=== PATIENT | male | born 1950 | race Caucasian/White ===

== ENCOUNTER 2016-04-24 15:33 | Inpatient (IN) | payer MEDICARE, MEDICAID ==
[2016-04-24] VITALS (15 sets, daily range): BP systolic 92–147; BP diastolic 57–74
[~2016-04-24] VITALS: Ht 188 cm; Wt 110.7 kg
[~2016-04-24 15:33] MED LIST: ADULT ASPIRIN L81 MG PO; ALLOPURINOL100 MG PO; ALTACE10 MG OR; ALTACE5 M1 PO; AMIODARONE HCL200 MG PO; AMIODARONE200 MG PO; ASPIRIN CHEWABL81 MG PO; ASPIRIN325 MG PO; AVELOX400 MG PO; BENADRYL25 MG OR; BRIMONIDINE0.2 % OP; CARVEDILOL25 MG PO; CARVEDILOL6.25 MG PO; CIPRO XR500 M2 PO; CIPRO XR500 MG PO; CIPRO250 MG PO; CIPRO500 MG OR; CIPROFLOXACN500 MG PO; CLEOCIN150 MG PO; COLCHICINE0.6 MG OR; CRESTOR5 MG PO; DOXYCYC MONO100 M1 OR; DUONEB IN; FAMOTIDINE20 M1 PO; FINASTERIDE5 MG PO; FLAGYL500 MG OR; FLAGYL500 MG PO; FLEXERIL PO; FLOMAX0.4 M1 PO; FUROSEMIDE20 MG PO; INHALER IN; ISOSORB DIN30 MG PO; ISOSORB MONO30 MG PO; K-DUR/KLOR-CON10 MEQ PO; KIONEX OR; LASIX 40 MG40 MG/TAB PO; LISINOPRIL10 MG PO; LOPRESSOR 550 MG/TAB PO; LOPRESSOR25 MG OR; LORTAB 5 OR; METOCLOPRAM5 MG PO; METOPROL TAR25 M1 OR; METOPROL TAR25 MG PO; METOPROLOL100 MG OR; NITROLINGUAL SPRAY D MT; NITROSTAT0.4 MG PO; NOVOLOG FLEXPEN SC; OMEPRAZOLE20 MG OR; ONDANSETRON4 MG PO; PANTOPRAZOLE SO40 M1 PO; PANTOPRAZOLE SO40 MG PO; PARICALCITOL1 MCG PO; PEPCID20 MG OR; PERCOCET 5/325M1 TAB OR; PERCOCET 5/325M1 TAB PO; PLAVIX75 MG PO; PRAVASTATIN SOD20 MG PO; PRAVASTATIN20 MG PO; PRAVASTATIN80 MG PO; PREDNISONE20 MG OR; PREDNISONE20 MG PO; PROVENTIL0.083 % IN; QVAR40 MCG IN; SIMVASTATIN20 MG OR; SYMBICORT1 AE1 IN; TAMSULOSIN0.4 MG PO; ULORIC40 MG PO; ULTRAM50 M1 PO; VYTORIN1 TA1 OR; ZEMPLAR1 MCG PO; ZETIA10 MG PO; ZOCOR80 MG PO; [UNRECOGNIZED DRUG - OTHER] OR
[2016-04-24 16:32] LABS: URINE BLOOD DIPSTICK NEGATIVE (NEGATIVE); URINE CLARITY CLEAR; URINE COLOR YELLOW; URINE GLUCOSE - DIPSTICK NEGATIVE (NEGATIVE); URINE KETONE NEGATIVE (NEGATIVE); URINE LEUK ESTERASE NEGATIVE (Negative); URINE NITRITE - DIPSTICK NEGATIVE (Negative); URINE PROTEIN - DIPSTICK >=300 mg/dL (NEG-TRACE); URINE SPECIFIC GRAVITY 1.025; URINE UROBILINOGEN - DIPSTICK >=8.0 E.U./dL (0.2)
[2016-04-24 16:44] LABS: URINE BILIRUBIN - DIPSTICK TRACE (NEGATIVE)
[2016-04-24 16:48] LABS: HEMATOCRIT 33.6 % (39.0-50.0); HEMOGLOBIN 11.1 g/dl (14.0-18.0); IMMATURE GRANULOCYTES 0.4 % (0.0-1.0); MEAN CELL VOLUME 95.7 fL CALC (80.0-100.0); MEAN CORPUSCULAR HGB 31.6 pG CALC (26.0-32.0); NEUT# 4.64 thou/uL (1.82-7.42); RED BLOOD COUNT 3.51 mill/uL (4.70-6.10); RED CELL DISTRI WIDTH 15.3 % (11.5-15.5)
[2016-04-24 17:03] LABS: ANION GAP 14 (6-22 (CALC)); BUN 24 mg/dL (8-23); BUN/CREATININE RATIO 15 (12-20 (CALC)); CALCIUM 8.5 mg/dL (8.4-10.2); CARBON DIOXIDE 28 mmol/l (22-30); CHLORIDE 104 mmol/l (95-108); CREATININE 1.6 mg/dL (0.7-1.3); GFR 44 ML/MIN (>=60 (CALC)); GFR FOR AFR.AMER. 53 ML/MIN (>=60 (CALC)); GLUCOSE 108 mg/dL (82-115); SODIUM 142 mmol/l (137-146)
[2016-04-24 17:16] LABS: URINE RBC 0-2 RBC/hpf (0-5); URINE SQUAMOUS EPITHELIAL CELL FEW EPI/hpf (0-FEW)
[2016-04-25] VITALS (17 sets, daily range): BP systolic 80–119; BP diastolic 51–74
[2016-04-25 04:35] LABS: HEMATOCRIT 33.8 % (39.0-50.0); HEMOGLOBIN 11.2 g/dl (14.0-18.0); IMMATURE GRANULOCYTES 0.3 % (0.0-1.0); MEAN CELL VOLUME 94.9 fL CALC (80.0-100.0); MEAN CORPUSCULAR HGB 31.5 pG CALC (26.0-32.0); MEAN CORPUSCULAR HGB CONC 33.1 g/L CALC (32.0-36.0); NEUT# 10.14 thou/uL (1.82-7.42); RED BLOOD COUNT 3.56 mill/uL (4.70-6.10); RED CELL DISTRI WIDTH 14.7 % (11.5-15.5)
[2016-04-25 04:48] LABS: ALBUMIN 3.1 g/dL (3.2-5.0); BILIRUBIN, TOTAL 1.9 mg/dL (0.0-1.4); CALCIUM 8.6 mg/dL (8.4-10.2); CREATININE 1.6 mg/dL (0.7-1.3); TOTAL PROTEIN 6.5 g/dL (6.3-8.2)
[2016-04-26] VITALS (34 sets, daily range): BP systolic 103–128; BP diastolic 62–89
[2016-04-26 06:11] LABS: HEMATOCRIT 34.6 % (39.0-50.0); HEMOGLOBIN 11.2 g/dl (14.0-18.0); IMMATURE GRANULOCYTES 0.7 % (0.0-1.0); MEAN CELL VOLUME 95.8 fL CALC (80.0-100.0); MEAN CORPUSCULAR HGB CONC 32.4 g/L CALC (32.0-36.0); NEUT# 12.96 thou/uL (1.82-7.42); RED BLOOD COUNT 3.61 mill/uL (4.70-6.10); RED CELL DISTRI WIDTH 14.6 % (11.5-15.5)
[2016-04-26 06:37] LABS: CALCIUM 8.5 mg/dL (8.4-10.2); CREATININE 1.6 mg/dL (0.7-1.3); POTASSIUM 4.7 mmol/l (3.5-5.1)
[2016-04-26 09:47] LABS: URINE BLOOD DIPSTICK LARGE (NEGATIVE); URINE CLARITY TURBID; URINE COLOR YELLOW; URINE GLUCOSE - DIPSTICK NEGATIVE (NEGATIVE); URINE KETONE NEGATIVE (NEGATIVE); URINE LEUK ESTERASE SMALL (Negative); URINE NITRITE - DIPSTICK NEGATIVE (Negative); URINE PH 5.5 (4.5-8.0); URINE PROTEIN - DIPSTICK 30 mg/dL (NEG-TRACE); URINE SPECIFIC GRAVITY 1.025
[2016-04-26 09:50] LABS: URINE BILIRUBIN - DIPSTICK SMALL (NEGATIVE)
[2016-04-26 10:13] LABS: URINE RBC 25-50 RBC/hpf (0-5); URINE WBC 20-50 WBC/hpf (0-5)
[2016-04-26 10:14] LABS: URINE BACTERIA FEW hpf; URINE SQUAMOUS EPITHELIAL CELL FEW EPI/hpf (0-FEW)
[2016-04-27] VITALS (25 sets, daily range): BP systolic 93–129; BP diastolic 58–77
[2016-04-27 05:15] LABS: CALCIUM 8.4 mg/dL (8.4-10.2); CREATININE 1.5 mg/dL (0.7-1.3); POTASSIUM 3.6 mmol/l (3.5-5.1)
[2016-04-27 05:28] LABS: HEMOGLOBIN 11.2 g/dl (14.0-18.0); IMMATURE GRANULOCYTES 0.3 % (0.0-1.0); MEAN CELL VOLUME 96.7 fL CALC (80.0-100.0); MEAN CORPUSCULAR HGB 30.9 pG CALC (26.0-32.0); NEUT# 9.86 thou/uL (1.82-7.42); RED BLOOD COUNT 3.62 mill/uL (4.70-6.10)
[2016-04-28] VITALS (9 sets, daily range): BP systolic 99–114; BP diastolic 57–69
[2016-04-28 05:48] LABS: HEMATOCRIT 31.7 % (39.0-50.0); HEMOGLOBIN 10.4 g/dl (14.0-18.0); IMMATURE GRANULOCYTES 0.5 % (0.0-1.0); MEAN CELL VOLUME 94.9 fL CALC (80.0-100.0); MEAN CORPUSCULAR HGB 31.1 pG CALC (26.0-32.0); MEAN CORPUSCULAR HGB CONC 32.8 g/L CALC (32.0-36.0); NEUT# 5.44 thou/uL (1.82-7.42); RED BLOOD COUNT 3.34 mill/uL (4.70-6.10); RED CELL DISTRI WIDTH 14.8 % (11.5-15.5)
[2016-04-28 06:12] LABS: ANION GAP 14 (6-22 (CALC)); BUN 29 mg/dL (8-23); BUN/CREATININE RATIO 20 (12-20 (CALC)); CALCIUM 8.3 mg/dL (8.4-10.2); CARBON DIOXIDE 34 mmol/l (22-30); CHLORIDE 99 mmol/l (95-108); CREATININE 1.4 mg/dL (0.7-1.3); GFR 51 ML/MIN (>=60 (CALC)); GFR FOR AFR.AMER. > 60 ML/MIN (>=60 (CALC)); GLUCOSE 88 mg/dL (82-115); POTASSIUM 3.4 mmol/l (3.5-5.1); SODIUM 143 mmol/l (137-146)
[2016-04-29] VITALS (11 sets, daily range): BP systolic 89–120; BP diastolic 50–66
[2016-04-29 05:00] LABS: HEMATOCRIT 30.8 % (39.0-50.0); HEMOGLOBIN 10.1 g/dl (14.0-18.0); IMMATURE GRANULOCYTES 0.4 % (0.0-1.0); MEAN CELL VOLUME 94.8 fL CALC (80.0-100.0); MEAN CORPUSCULAR HGB 31.1 pG CALC (26.0-32.0); MEAN CORPUSCULAR HGB CONC 32.8 g/L CALC (32.0-36.0); NEUT# 3.33 thou/uL (1.82-7.42); RED BLOOD COUNT 3.25 mill/uL (4.70-6.10); RED CELL DISTRI WIDTH 14.9 % (11.5-15.5)
[2016-04-29 05:28] LABS: ANION GAP 10 (6-22 (CALC)); BUN 31 mg/dL (8-23); BUN/CREATININE RATIO 23 (12-20 (CALC)); CALCIUM 7.9 mg/dL (8.4-10.2); CARBON DIOXIDE 35 mmol/l (22-30); CHLORIDE 98 mmol/l (95-108); CREATININE 1.4 mg/dL (0.7-1.3); GFR 51 ML/MIN (>=60 (CALC)); GFR FOR AFR.AMER. > 60 ML/MIN (>=60 (CALC)); GLUCOSE 105 mg/dL (82-115); POTASSIUM 3.1 mmol/l (3.5-5.1); SODIUM 140 mmol/l (137-146)
[2016-04-30] VITALS (12 sets, daily range): BP systolic 93–124; BP diastolic 58–79
[2016-04-30 04:49] LABS: ANION GAP 11 (6-22 (CALC)); BUN 32 mg/dL (8-23); BUN/CREATININE RATIO 25 (12-20 (CALC)); CALCIUM 7.9 mg/dL (8.4-10.2); CARBON DIOXIDE 34 mmol/l (22-30); CHLORIDE 98 mmol/l (95-108); CREATININE 1.3 mg/dL (0.7-1.3); GFR 55 ML/MIN (>=60 (CALC)); GFR FOR AFR.AMER. > 60 ML/MIN (>=60 (CALC)); GLUCOSE 108 mg/dL (82-115); POTASSIUM 3.5 mmol/l (3.5-5.1); SODIUM 140 mmol/l (137-146)
[2016-04-30 05:03] LABS: HEMATOCRIT 32.7 % (39.0-50.0); HEMOGLOBIN 10.9 g/dl (14.0-18.0); IMMATURE GRANULOCYTES 0.7 % (0.0-1.0); MEAN CELL VOLUME 94.2 fL CALC (80.0-100.0); MEAN CORPUSCULAR HGB 31.4 pG CALC (26.0-32.0); MEAN CORPUSCULAR HGB CONC 33.3 g/L CALC (32.0-36.0); NEUT# 3.19 thou/uL (1.82-7.42); RED BLOOD COUNT 3.47 mill/uL (4.70-6.10); RED CELL DISTRI WIDTH 15.1 % (11.5-15.5)
[2016-05-01] VITALS (12 sets, daily range): BP systolic 103–160; BP diastolic 57–84
[2016-05-01 05:32] LABS: HEMATOCRIT 32.4 % (39.0-50.0); HEMOGLOBIN 10.8 g/dl (14.0-18.0); IMMATURE GRANULOCYTES 0.8 % (0.0-1.0); MEAN CELL VOLUME 93.4 fL CALC (80.0-100.0); MEAN CORPUSCULAR HGB 31.1 pG CALC (26.0-32.0); MEAN CORPUSCULAR HGB CONC 33.3 g/L CALC (32.0-36.0); NEUT# 3.58 thou/uL (1.82-7.42); RED BLOOD COUNT 3.47 mill/uL (4.70-6.10); RED CELL DISTRI WIDTH 14.9 % (11.5-15.5)
[2016-05-01 05:47] LABS: ANION GAP 14 (6-22 (CALC)); BUN 29 mg/dL (8-23); BUN/CREATININE RATIO 23 (12-20 (CALC)); CALCIUM 8.2 mg/dL (8.4-10.2); CARBON DIOXIDE 34 mmol/l (22-30); CHLORIDE 96 mmol/l (95-108); CREATININE 1.3 mg/dL (0.7-1.3); GFR 55 ML/MIN (>=60 (CALC)); GFR FOR AFR.AMER. > 60 ML/MIN (>=60 (CALC)); GLUCOSE 101 mg/dL (82-115); POTASSIUM 3.6 mmol/l (3.5-5.1); SODIUM 140 mmol/l (137-146)
[2016-05-02] VITALS (11 sets, daily range): BP systolic 87–121; BP diastolic 54–71
[2016-05-02 06:45] LABS: GFR 55 ML/MIN (>=60 (CALC))
[2016-05-02 06:46] LABS: ANION GAP 13 (6-22 (CALC)); BUN 27 mg/dL (8-23); BUN/CREATININE RATIO 21 (12-20 (CALC)); CALCIUM 8.2 mg/dL (8.4-10.2); CARBON DIOXIDE 35 mmol/l (22-30); CHLORIDE 96 mmol/l (95-108); CREATININE 1.3 mg/dL (0.7-1.3); GFR FOR AFR.AMER. > 60 ML/MIN (>=60 (CALC)); GLUCOSE 98 mg/dL (82-115); POTASSIUM 3.7 mmol/l (3.5-5.1); SODIUM 139 mmol/l (137-146)
[2016-05-02 06:59] LABS: HEMATOCRIT 32.8 % (39.0-50.0); HEMOGLOBIN 11.1 g/dl (14.0-18.0); IMMATURE GRANULOCYTES 0.8 % (0.0-1.0); MEAN CELL VOLUME 92.9 fL CALC (80.0-100.0); MEAN CORPUSCULAR HGB 31.4 pG CALC (26.0-32.0); MEAN CORPUSCULAR HGB CONC 33.8 g/L CALC (32.0-36.0); NEUT# 4.23 thou/uL (1.82-7.42); RED BLOOD COUNT 3.53 mill/uL (4.70-6.10); RED CELL DISTRI WIDTH 15.1 % (11.5-15.5)
[2016-05-03] VITALS (7 sets, daily range): BP systolic 92–118; BP diastolic 53–73
[2016-05-03 05:35] LABS: HEMATOCRIT 33.3 % (39.0-50.0); HEMOGLOBIN 11.1 g/dl (14.0-18.0); IMMATURE GRANULOCYTES 0.8 % (0.0-1.0); MEAN CELL VOLUME 94.3 fL CALC (80.0-100.0); MEAN CORPUSCULAR HGB 31.4 pG CALC (26.0-32.0); MEAN CORPUSCULAR HGB CONC 33.3 g/L CALC (32.0-36.0); NEUT# 4.45 thou/uL (1.82-7.42); RED BLOOD COUNT 3.53 mill/uL (4.70-6.10); RED CELL DISTRI WIDTH 15.5 % (11.5-15.5)
[2016-05-03 05:42] LABS: ANION GAP 12 (6-22 (CALC)); BUN 25 mg/dL (8-23); BUN/CREATININE RATIO 18 (12-20 (CALC)); CALCIUM 8.3 mg/dL (8.4-10.2); CARBON DIOXIDE 36 mmol/l (22-30); CHLORIDE 96 mmol/l (95-108); CREATININE 1.4 mg/dL (0.7-1.3); GFR 51 ML/MIN (>=60 (CALC)); GFR FOR AFR.AMER. > 60 ML/MIN (>=60 (CALC)); GLUCOSE 108 mg/dL (82-115); SODIUM 140 mmol/l (137-146)
[2016-05-03] MEDS ORDERED: CORDARONE/200 MG/TAB PO (12:45)
[2016-05-03] MEDS ORDERED: DICYCLOMINE HCL10 MG PO (12:45)
[2016-05-03] MEDS ORDERED: BUMETANIDE2 MG IN (12:45)
== END 2016-05-03 15:56 | DRG 291 ==
LOC: ENPENDDIS → ICU 15:33
PROVIDERS: Internal Medicine; ADMIT Internal Medicine; ATTEND Internal Medicine
PROC: 0T9B70Z Drainage of Bladder with Drainage Device, Via Natural or Artificial Opening (ICD-10-PCS; principal; 2016-04-24)
PROC: 0D9670Z Drainage of Stomach with Drainage Device, Via Natural or Artificial Opening (ICD-10-PCS; 2016-04-26)
DX: I50.23 Acute on chronic systolic (congestive) heart failure (principal); J96.22 Acute and chronic respiratory failure with hypercapnia; J96.21 Acute and chronic respiratory failure with hypoxia; E11.22 Type 2 diabetes mellitus with diabetic chronic kidney disease; I25.708 Atherosclerosis of coronary artery bypass graft(s), unspecified, with other forms of angina pectoris; Z99.81 Dependence on supplemental oxygen; B37.49 Other urogenital candidiasis; N39.0 Urinary tract infection, site not specified; T83.89XA Other specified complication of genitourinary prosthetic devices, implants and grafts, initial encounter; J44.9 Chronic obstructive pulmonary disease, unspecified; F17.210 Nicotine dependence, cigarettes, uncomplicated; N18.3 Chronic kidney disease, stage 3 (moderate); N48.89 Other specified disorders of penis; N40.0 Benign prostatic hyperplasia without lower urinary tract symptoms; I25.2 Old myocardial infarction; I25.5 Ischemic cardiomyopathy; I73.9 Peripheral vascular disease, unspecified; G47.33 Obstructive sleep apnea (adult) (pediatric); I25.118 Atherosclerotic heart disease of native coronary artery with other forms of angina pectoris; R11.2 Nausea with vomiting, unspecified; R10.9 Unspecified abdominal pain; B96.20 Unspecified Escherichia coli [E. coli] as the cause of diseases classified elsewhere; Y84.6 Urinary catheterization as the cause of abnormal reaction of the patient, or of later complication, without mention of misadventure at the time of the procedure; Z95.1 Presence of aortocoronary bypass graft; Z95.810 Presence of automatic (implantable) cardiac defibrillator; Z95.5 Presence of coronary angioplasty implant and graft
CPT/HCPCS: J1250; S0164

== ENCOUNTER 2016-07-09 10:43 | Emergency (ER) | payer MEDICARE, MEDICAID ==
[~2016-07-09] VITALS: Ht 190.5 cm; Wt 111.4 kg
[~2016-07-09 10:43] MED LIST changes: +BUMETANIDE2 MG IN; +CORDARONE/200 MG/TAB PO; +DICYCLOMINE HCL10 MG PO
[2016-07-09 11:17] LABS: HEMATOCRIT 34.4 % (39.0-50.0); HEMOGLOBIN 11.3 g/dl (14.0-18.0); IMMATURE GRANULOCYTES 0.3 % (0.0-1.0); MEAN CELL VOLUME 98.9 fL CALC (80.0-100.0); MEAN CORPUSCULAR HGB 32.5 pG CALC (26.0-32.0); MEAN CORPUSCULAR HGB CONC 32.8 g/L CALC (32.0-36.0); NEUT# 6.78 thou/uL (1.82-7.42); RED BLOOD COUNT 3.48 mill/uL (4.70-6.10); RED CELL DISTRI WIDTH 19.4 % (11.5-15.5)
[2016-07-09 11:25] LABS: ALBUMIN 3.2 g/dL (3.2-5.0); CALCIUM 8.3 mg/dL (8.4-10.2); CREATININE 1.5 mg/dL (0.7-1.3); POTASSIUM 3.3 mmol/l (3.5-5.1); TOTAL PROTEIN 6.7 g/dL (6.3-8.2)
[2016-07-09] MEDS ORDERED: SERTRALINE50 MG PO (11:35)
[2016-07-09 15:49] LABS: URINE BILIRUBIN - DIPSTICK NEGATIVE (NEGATIVE); URINE BLOOD DIPSTICK TRACE-INTACT (NEGATIVE); URINE CLARITY CLEAR; URINE COLOR YELLOW; URINE GLUCOSE - DIPSTICK NEGATIVE (NEGATIVE); URINE KETONE NEGATIVE (NEGATIVE); URINE LEUK ESTERASE NEGATIVE (NEGATIVE); URINE NITRITE - DIPSTICK NEGATIVE (Negative); URINE PROTEIN - DIPSTICK NEGATIVE (NEG-TRACE)
[2016-07-09] MEDS ORDERED: LORTAB 10-325 M1 TAB PO (16:00)
[2016-07-09 16:09] VITALS: BP 115/75
== END 2016-07-09 17:12 | disposition home or self-care (01) ==
LOC: ED 10:43
PROVIDERS: Emergency Medicine
PROC: 0T9B70Z Drainage of Bladder with Drainage Device, Via Natural or Artificial Opening (ICD-10-PCS; principal; 2016-07-09)
DX: N50.82 Scrotal pain (principal); N43.3 Hydrocele, unspecified; I25.10 Atherosclerotic heart disease of native coronary artery without angina pectoris; I10 Essential (primary) hypertension; I25.2 Old myocardial infarction; E11.9 Type 2 diabetes mellitus without complications; F17.210 Nicotine dependence, cigarettes, uncomplicated; Z95.5 Presence of coronary angioplasty implant and graft; Z95.1 Presence of aortocoronary bypass graft; Z95.0 Presence of cardiac pacemaker

== ENCOUNTER 2016-07-21 13:07 | Inpatient (IN) | payer MEDICARE, MEDICAID ==
[~2016-07-21] VITALS: Ht 188 cm; Wt 120.0 kg
[~2016-07-21 13:07] MED LIST changes: +LORTAB 10-325 M1 TAB PO; +SERTRALINE50 MG PO
[2016-07-21 13:26] LABS: HEMATOCRIT 32.8 % (39.0-50.0); HEMOGLOBIN 10.7 g/dl (14.0-18.0); IMMATURE GRANULOCYTES 0.3 % (0.0-1.0); MEAN CELL VOLUME 100.3 fL CALC (80.0-100.0); MEAN CORPUSCULAR HGB 32.7 pG CALC (26.0-32.0); MEAN CORPUSCULAR HGB CONC 32.6 g/L CALC (32.0-36.0); NEUT# 6.71 thou/uL (1.82-7.42); RED BLOOD COUNT 3.27 mill/uL (4.70-6.10); RED CELL DISTRI WIDTH 18.5 % (11.5-15.5)
[2016-07-21 13:53] LABS: MYOGLOBIN 77 ng/mL (0 - 121)
[2016-07-21 13:57] LABS: INTERNATIONAL NORMALIZED RATIO 1.1 RATIO (0.7-1.3); PROTHROMBIN TIME 12.4 SECONDS (9.0-12.5)
[2016-07-21 14:10] LABS: AMYLASE 60 u/l (30-110); LIPASE 67 u/l (23-300)
[2016-07-21 14:12] LABS: ALKALINE PHOSPHATASE 188 u/l (38-126); ANION GAP 14 (6-22 (CALC)); BILIRUBIN, TOTAL 1.1 mg/dL (0.0-1.4); BUN 25 mg/dL (8-23); BUN/CREATININE RATIO 18 (12-20 (CALC)); CALCIUM 8.3 mg/dL (8.4-10.2); CARBON DIOXIDE 28 mmol/l (22-30); CHLORIDE 103 mmol/l (95-108); CREATININE 1.4 mg/dL (0.7-1.3); GFR 51 ML/MIN (>=60 (CALC)); GFR FOR AFR.AMER. > 60 ML/MIN (>=60 (CALC)); GLUCOSE 105 mg/dL (82-115); POTASSIUM 3.5 mmol/l (3.5-5.1); SGOT/AST 30 u/l (19-48); SGPT/ALT 24 u/l (11-66); SODIUM 142 mmol/l (137-146); TOTAL PROTEIN 6.2 g/dL (6.3-8.2)
[2016-07-21] MEDS ORDERED: AMIODARONE200 MG PO (15:01)
[2016-07-21] MEDS ORDERED: BUMETANIDE1 MG PO (15:01)
[2016-07-21] MEDS ORDERED: FINASTERIDE5 MG PO (15:02)
[2016-07-21] MEDS ORDERED: SERTRALINE50 MG PO (15:02)
[2016-07-21] MEDS ORDERED: ASPIRIN81 MG PO (15:03)
[2016-07-21] MEDS ORDERED: ALLOPURINOL100 MG PO (15:04)
[2016-07-21] MEDS ORDERED: ALBUTEROL SUL0.083 % IN (15:07)
[2016-07-21 15:23] LABS: URINE BILIRUBIN - DIPSTICK NEGATIVE (NEGATIVE); URINE BLOOD DIPSTICK LARGE (NEGATIVE); URINE COLOR YELLOW; URINE GLUCOSE - DIPSTICK NEGATIVE (NEGATIVE); URINE KETONE NEGATIVE (NEGATIVE); URINE NITRITE - DIPSTICK NEGATIVE (Negative); URINE PROTEIN - DIPSTICK TRACE mg/dL (NEG-TRACE)
[2016-07-21 15:27] LABS: URINE LEUK ESTERASE MODERATE (NEGATIVE)
[2016-07-21 15:28] LABS: URINE CLARITY TURBID
[2016-07-21 15:40] LABS: URINE BACTERIA FEW hpf; URINE RBC TNTC RBC/hpf (0-5); URINE SQUAMOUS EPITHELIAL CELL FEW EPI/hpf (0-FEW); URINE WBC 20-50 WBC/hpf (0-5)
[2016-07-21 17:26] VITALS: BP 101/48
[2016-07-21 19:15] VITALS: BP 102/64; BP 135/63
[2016-07-21 23:55] VITALS: BP 99/55
[2016-07-22 03:16] VITALS: BP 99/57
[2016-07-22 07:23] VITALS: BP 112/63
[2016-07-22 11:02] VITALS: BP 105/59
[2016-07-22 16:02] VITALS: BP 132/76
[2016-07-22 19:30] VITALS: BP 106/67
[2016-07-22 23:36] VITALS: BP 101/64
[2016-07-23 04:29] VITALS: BP 100/54
[2016-07-23 05:32] LABS: HEMATOCRIT 31.1 % (39.0-50.0); HEMOGLOBIN 10.3 g/dl (14.0-18.0); IMMATURE GRANULOCYTES 0.5 % (0.0-1.0); MEAN CELL VOLUME 98.4 fL CALC (80.0-100.0); MEAN CORPUSCULAR HGB 32.6 pG CALC (26.0-32.0); MEAN CORPUSCULAR HGB CONC 33.1 g/L CALC (32.0-36.0); NEUT# 5.77 thou/uL (1.82-7.42); RED BLOOD COUNT 3.16 mill/uL (4.70-6.10); RED CELL DISTRI WIDTH 18.2 % (11.5-15.5)
[2016-07-23 05:52] LABS: CALCIUM 8.2 mg/dL (8.4-10.2); CREATININE 1.5 mg/dL (0.7-1.3); POTASSIUM 3.2 mmol/l (3.5-5.1)
[2016-07-23 09:22] VITALS: BP 103/65
== END 2016-07-23 13:40 | disposition short-term general hospital (02) | DRG 291 ==
LOC: ED 13:07 → ED-I 14:53 → ED 14:53 → ED-I 14:53 → ED 15:36 → MS2 15:37
PROVIDERS: Emergency Medicine; ADMIT Internal Medicine; ATTEND Internal Medicine
DX: I13.0 Hypertensive heart and chronic kidney disease with heart failure and stage 1 through stage 4 chronic kidney disease, or unspecified chronic kidney disease (principal); I50.23 Acute on chronic systolic (congestive) heart failure; J96.11 Chronic respiratory failure with hypoxia; E11.22 Type 2 diabetes mellitus with diabetic chronic kidney disease; Z99.81 Dependence on supplemental oxygen; J96.12 Chronic respiratory failure with hypercapnia; N18.3 Chronic kidney disease, stage 3 (moderate); I25.10 Atherosclerotic heart disease of native coronary artery without angina pectoris; I25.5 Ischemic cardiomyopathy; R33.9 Retention of urine, unspecified; F17.210 Nicotine dependence, cigarettes, uncomplicated; J44.9 Chronic obstructive pulmonary disease, unspecified; D63.1 Anemia in chronic kidney disease; F32.9 Major depressive disorder, single episode, unspecified; I70.219 Atherosclerosis of native arteries of extremities with intermittent claudication, unspecified extremity; G47.33 Obstructive sleep apnea (adult) (pediatric); N50.89 Other specified disorders of the male genital organs; Z95.5 Presence of coronary angioplasty implant and graft; Z95.810 Presence of automatic (implantable) cardiac defibrillator; Z95.1 Presence of aortocoronary bypass graft
CPT/HCPCS: G0378

== ENCOUNTER 2017-10-16 09:55 | Emergency (ER) | payer MEDICARE ==
[~2017-10-16] VITALS: Ht 188 cm; Wt 105.0 kg
[~2017-10-16 09:55] MED LIST changes: +ALBUTEROL SUL0.083 % IN; +ASPIRIN81 MG PO; +BUMETANIDE1 MG PO
[2017-10-16] MEDS ORDERED: LEVEMIR100 UNIT/M SC (10:12)
[2017-10-16] MEDS ORDERED: SPIRONOLACT25 MG PO (10:13)
[2017-10-16] MEDS ORDERED: LASIX 20 MG TAB20 MG PO (10:14)
[2017-10-16] MEDS ORDERED: PROTONIX40 M2 PO (10:14)
[2017-10-16] MEDS ORDERED: METOLAZONE5 MG PO (10:15)
[2017-10-16] MEDS ORDERED: LEVOTHYROXIN25 MC1 PO (10:19)
[2017-10-16] MEDS ORDERED: OMNICEF300 M1 PO (10:59)
[2017-10-16] MEDS ORDERED: MOTRIN400 MG PO (11:00)
[2017-10-16 11:30] VITALS: BP 102/64
== END 2017-10-16 11:30 | disposition home or self-care (01) ==
LOC: ED 09:55
DX: M79.672 Pain in left foot (principal); I10 Essential (primary) hypertension; E11.9 Type 2 diabetes mellitus without complications; I25.2 Old myocardial infarction; Z95.5 Presence of coronary angioplasty implant and graft; Z95.0 Presence of cardiac pacemaker; F17.210 Nicotine dependence, cigarettes, uncomplicated

== ENCOUNTER 2017-12-02 13:17 | Emergency (ER) | payer MEDICARE ==
[~2017-12-02] VITALS: Ht 188 cm; Wt 111.4 kg
[~2017-12-02 13:17] MED LIST changes: -BRIMONIDINE0.2 % OP; +BRIMONIDINE0.2 % OU; -FLOMAX0.4 M1 PO; +LASIX 20 MG TAB20 MG PO; +LEVEMIR100 UNIT/M SC; +LEVOTHYROXIN25 MC1 PO; +METOLAZONE5 MG PO; +MOTRIN400 MG PO; +OMNICEF300 M1 PO; +PROTONIX40 M2 PO; +SPIRONOLACT25 MG PO
[2017-12-02] MEDS ORDERED: SERTRALINE HCL50 MG PO (15:44)
[2017-12-02] MEDS ORDERED: DULOXETINE HCL60 MG PO (15:44)
[2017-12-02] MEDS ORDERED: ISOSORB MONO30 MG PO (15:46)
[2017-12-02] MEDS ORDERED: PRAVASTATIN SOD40 MG PO (15:47)
[2017-12-02] MEDS ORDERED: CARVEDILOL6.25 MG PO (15:47)
[2017-12-02] MEDS ORDERED: ALLOPURINOL100 MG PO (15:51)
[2017-12-02 16:00] VITALS: BP 102/62
== END 2017-12-02 16:00 | disposition home or self-care (01) ==
LOC: ED 13:17
DX: R07.81 Pleurodynia (principal); I10 Essential (primary) hypertension; E11.9 Type 2 diabetes mellitus without complications; F17.210 Nicotine dependence, cigarettes, uncomplicated; I25.2 Old myocardial infarction; W01.0XXA Fall on same level from slipping, tripping and stumbling without subsequent striking against object, initial encounter; Y92.009 Unspecified place in unspecified non-institutional (private) residence as the place of occurrence of the external cause; Z95.5 Presence of coronary angioplasty implant and graft; Z95.0 Presence of cardiac pacemaker

== ENCOUNTER → 2018-05-09 | Outpatient (REF) | payer MEDICARE ==
[~2018-05-09] MED LIST changes: +DULOXETINE HCL60 MG PO; +PRAVASTATIN SOD40 MG PO; +SERTRALINE HCL50 MG PO
[2018-05-09 12:31] LABS: CREATININE 2.6 mg/dL (0.7-1.3); POTASSIUM 4.7 mmol/l (3.5-5.1)
== END | disposition home or self-care (01) ==
LOC: LAB 11:17
PROVIDERS: ATTEND Internal Medicine
DX: E78.49 Other hyperlipidemia (principal); I10 Essential (primary) hypertension

== ENCOUNTER 2018-06-25 16:25 | Emergency (ER) | payer MEDICARE ==
[~2018-06-25] VITALS: Ht 188 cm; Wt 119.0 kg
[2018-06-25 17:28] LABS: HEMATOCRIT 38.4 % (39.0-50.0); HEMOGLOBIN 12.6 g/dl (14.0-18.0); IMMATURE GRANULOCYTES 0.6 % (0.0-5.0); MEAN CELL VOLUME 98.7 fL CALC (80.0-100.0); MEAN CORPUSCULAR HGB 32.4 pG CALC (26.0-32.0); MEAN CORPUSCULAR HGB CONC 32.8 g/L CALC (32.0-36.0); NEUT# 5.64 thou/uL (1.82-7.42); RED BLOOD COUNT 3.89 mill/uL (4.70-6.10); RED CELL DISTRI WIDTH 14.1 % (11.5-15.5)
[2018-06-25 17:51] LABS: ANION GAP 13 (6-22 (CALC)); BUN 52 mg/dL (8-23); BUN/CREATININE RATIO 21 (12-20 (CALC)); CARBON DIOXIDE 28 mmol/l (22-30); CHLORIDE 101 mmol/l (95-108); CREATININE 2.5 mg/dL (0.7-1.3); GFR 26 ML/MIN (>=60 (CALC)); GFR FOR AFR.AMER. 31 ML/MIN (>=60 (CALC)); POTASSIUM 4.8 mmol/l (3.5-5.1); SODIUM 138 mmol/l (137-146)
[2018-06-25 18:40] VITALS: BP 128/77
== END 2018-06-25 18:42 | disposition home or self-care (01) ==
LOC: ED 16:25
PROVIDERS: Family Medicine
DX: R55 Syncope and collapse (principal); I10 Essential (primary) hypertension; E11.9 Type 2 diabetes mellitus without complications; J44.9 Chronic obstructive pulmonary disease, unspecified; I25.2 Old myocardial infarction; F17.210 Nicotine dependence, cigarettes, uncomplicated; M25.512 Pain in left shoulder; R94.31 Abnormal electrocardiogram [ECG] [EKG]
CPT/HCPCS: J0131

== ENCOUNTER 2018-09-11 23:56 | Inpatient (IN) | payer MEDICARE ==
[~2018-09-11] VITALS: Ht 188 cm; Wt 119.6 kg
--- NOTE | 2018-09-11 23:56 | NUR ---
TO ROOM VIA STRETCHER BY EMS. ON O2 AT 6L/MIN VIA N/C. ALERT. ANSWERS QUESTIONS WITH 1-2 WORDS. ALERT. SOB. USING ACCESSORY MUSCLES TO BREATHE. HAD NEB TX AND IV DECADRON BY EMS SUPERVISOR ROLLING ROOM
[2018-09-12] VITALS (10 sets, daily range): BP systolic 103–132; BP diastolic 52–76
[2018-09-12 00:25] LABS: IMMATURE GRANULOCYTES 0.6 % (0.0-5.0); MEAN CELL VOLUME 97.2 fL CALC (80.0-100.0); MEAN CORPUSCULAR HGB 31.8 pG CALC (26.0-32.0); MEAN CORPUSCULAR HGB CONC 32.7 g/L CALC (32.0-36.0); NEUT# 6.67 thou/uL (1.82-7.42); RED BLOOD COUNT 3.24 mill/uL (4.70-6.10); RED CELL DISTRI WIDTH 13.6 % (11.5-15.5)
[2018-09-12 00:28] LABS: HEMATOCRIT 31.5 % (39.0-50.0); HEMOGLOBIN 10.3 g/dl (14.0-18.0)
--- NOTE | 2018-09-12 00:29 | NUR ---
BILAATERAL CRACKLES BASE TO 4TH RIBS
[2018-09-12 00:35] LABS: ALBUMIN 3.6 g/dL (3.2-5.0); BILIRUBIN, TOTAL 0.4 mg/dL (0.0-1.4); CREATININE 1.8 mg/dL (0.7-1.3); POTASSIUM 3.9 mmol/l (3.5-5.1); TOTAL PROTEIN 6.8 g/dL (6.3-8.2)
[2018-09-12 01:15] LABS: URINE BILIRUBIN - DIPSTICK NEGATIVE (NEGATIVE); URINE BLOOD DIPSTICK NEGATIVE (NEGATIVE); URINE COLOR YELLOW; URINE GLUCOSE - DIPSTICK NEGATIVE (NEGATIVE); URINE KETONE NEGATIVE (NEGATIVE); URINE LEUK ESTERASE NEGATIVE (NEGATIVE); URINE NITRITE - DIPSTICK NEGATIVE (Negative); URINE PROTEIN - DIPSTICK NEGATIVE (NEG-TRACE); URINE SPECIFIC GRAVITY 1.015; URINE UROBILINOGEN - DIPSTICK 0.2 E.U./dL (0.2)
--- NOTE | 2018-09-12 01:15 | NUR ---
UOP 200 CC
--- NOTE | 2018-09-12 02:00 | NUR ---
VOIDED 200 CC CLEAR YELLOW URINE
--- NOTE | 2018-09-12 02:10 | NUR ---
Admission Note Report Given to: DEANGELO ESCUDERO Transported by: Wheelchair X Stretcher Transported with: X Nurse Transporter X Patent IV X O2 X Manager Retail Sales
--- NOTE | 2018-09-12 02:20 | NUR ---
68 yr old white male admitted icu7 per stretcher from er. transferred self to bed. bed weight obtained. no acute resp diff. cardiac rehabilitation program director shows paced rhythm. 20 rac saline lock. history obtained per pt, & er record. oriented to room. fall precautions initiated.
--- NOTE | 2018-09-12 04:00 | NUR ---
eyes closed. no apparent resp diff. playground monitor shows paced rhythm. hob remains in high fowlers position. asleep in chair.
--- NOTE | 2018-09-12 05:30 | NUR ---
lab here. blood drawn.
--- NOTE | 2018-09-12 06:00 | NUR ---
eyes closed. no apparent distress. engine monitor shows paced rhythm. asleep in chair.
[2018-09-12 06:11] LABS: ALBUMIN 3.3 g/dL (3.2-5.0); BILIRUBIN, TOTAL 0.3 mg/dL (0.0-1.4); CREATININE 1.8 mg/dL (0.7-1.3); POTASSIUM 4.2 mmol/l (3.5-5.1); TOTAL PROTEIN 6.1 g/dL (6.3-8.2)
--- NOTE | 2018-09-12 07:40 | NUR ---
PT RESTING IN BED WITH EYES CLOSED, RESP EVEN AND UNLABORED. EASILY AROUSED TO VERBAL STIMULI. ALERT AND ORIENTED X3, DISCUSSED POC, AT BEDSIDE. ACCUCHECK 180, 1 UNIT OF INSULIN GIVEN. PITTING EDEMA TO BLE, ASSESSMENT COMPLETED, CALL LIGHT IN REACH,CONTINUE TO MONITOR.
--- NOTE | 2018-09-12 08:53 | NUR ---
AT BEDSIDE TO DISCUSS POC WITH FAMILY.
--- NOTE | 2018-09-12 11:58 | NUR ---
PT RESTING IN BED, EATING LUNCH, NO SIGNS OF DISTRESS NOTED, RESP EVEN AND UNLABORED. PT VOICES NO NEEDS OR COMPLAINTS AT THIS TIME, CALL LIGHT IN REACH,CONTINUE TO MONITOR.
--- NOTE | 2018-09-12 13:45 | NUR ---
PT C/O HEADACHE 08/27. PT MEDICATED WIHT TYLENOL. CALL LIGHT IN REACH,CONTINUE TO MONITOR. AT BEDSIDE.
[2018-09-12] MEDS ORDERED: ZYLOPRIM100 MG PO (15:04)
[2018-09-12] MEDS ORDERED: AMIODARONE200 MG PO (15:09)
[2018-09-12] MEDS ORDERED: NOVOLOG MIX SC (15:12)
[2018-09-12] MEDS ORDERED: TAMSULOSIN0.4 MG PO (15:34)
--- NOTE | 2018-09-12 19:20 | NUR ---
awake. c/o resp diff. sao2 96%. continually speaking to family members @ bedside. o2 cont. no apparent resp diff. cardiac monitor technician shows paced rhythm. #20 rac saline lock. voided well per urinal. fall precautions cont.
--- NOTE | 2018-09-12 19:30 | NUR ---
awake. watching tv. family left. denies resp diff. school bus monitor shows paced rhythm. pt requests to go to the toilet. refuses bsc. amb w/o diff x1 assist to bathroom for bm. clay well. assisted to chair per request.
--- NOTE | 2018-09-12 22:00 | NUR ---
eyes closed. no distress. air sampling and monitoring shows paced rhythm. o2 cont.
[2018-09-13] VITALS (10 sets, daily range): BP systolic 106–137; BP diastolic 55–78
--- NOTE | 2018-09-13 00:01 | NUR ---
eyes closed. no distress. monitor and storage bin tender shows paced rhythm.
--- NOTE | 2018-09-13 02:00 | NUR ---
resting quietly. no apparent distress. o2 cont. monitor car operator shows paced rhythm.
--- NOTE | 2018-09-13 04:00 | NUR ---
eyes closed. no distress. bus driver/monitor shows paced rhythm.
--- NOTE | 2018-09-13 04:50 | NUR ---
lab here. blood drawn.
--- NOTE | 2018-09-13 05:31 | NUR ---
athed self then returned to bed. bed weight obtained. denies distress.
[2018-09-13 05:50] LABS: HEMOGLOBIN 10.3 g/dl (14.0-18.0); MEAN CORPUSCULAR HGB 31.2 pG CALC (26.0-32.0); MEAN CORPUSCULAR HGB CONC 32.2 g/L CALC (32.0-36.0); RED BLOOD COUNT 3.3 mill/uL (4.70-6.10); RED CELL DISTRI WIDTH 13.4 % (11.5-15.5)
[2018-09-13 05:59] LABS: CREATININE 1.9 mg/dL (0.7-1.3); MAGNESIUM 1.9 mg/dL (1.6-2.3); POTASSIUM 4.5 mmol/l (3.5-5.1)
--- NOTE | 2018-09-13 08:00 | NUR ---
ASSISTED PT TO RESTROOM PER REQUEST, REFUSING TO WEAR 02, SAYS "I'M FINE WITHOUT IT"
--- NOTE | 2018-09-13 08:24 | NUR ---
LAURENT MARROQUIN CALLED D/T PT REFUSING TO GET BACK IN BED & THREATENING STAFF.
--- NOTE | 2018-09-13 08:27 | NUR ---
HOUSE SUP & SECURITY @BEDSIDE. TALKED PT DOWN TO CHAIR, PLACED NC BACK ON & PLACED BACK ON MONITOR.
--- NOTE | 2018-09-13 08:30 | NUR ---
HOUSE SUP & SECURITY REMINDING PT TO CALL FOR HELP WHEN OUT OF BED SO HE DOESNT FALL. PT ALREADY REMINDED TO WEAR O2 AGAIN D/T PT EXTREMELY SOB WHEN OUT OF BED/WALKING AROUND.
--- NOTE | 2018-09-13 09:02 | NUR ---
PT NOW LAUGHING/JOKING WITH STAFF DURING AM MED PASS. PT APOLOGIZED FOR HIS BEHAVIOR.
--- NOTE | 2018-09-13 11:22 | NUR ---
DR CENTENO @BEDSIDE, ASSESSING PT & DISCUSSING TEST RESULTS/POC. @BEDSIDE. PT GIVEN SALTINES, PER REQUEST, BC HE "IS STARVING".
--- NOTE | 2018-09-13 11:53 | NUR ---
PT SITTING UP IN CHAIR, EATING LUNCH. @BEDSIDE. PT FREINDLY/JOKING/PLAYFUL WITH STAFF. PT ON NC. WILL CONTINUE TO MONITOR.
--- NOTE | 2018-09-13 12:23 | NUR ---
PT UP TO BATHROOM FOR POSSIBLE BM.
--- NOTE | 2018-09-13 13:15 | NUR ---
RT @BEDSIDE FOR BREATHING TREATMENT. WENT HOME
--- NOTE | 2018-09-13 14:14 | NUR ---
PT SLEEPING SITTING UP IN CHAIR. PT REPEATEDLY REMOVES NC & HAS TO BE REMINDED TO KEEP NC ON. O2 HUMIFIED AROUND NOON TODAY. 02 IS 97% WITH 2L, 88% W/OUT O2.
--- NOTE | 2018-09-13 15:16 | NUR ---
PT MAX ASSIST x2 FROM CHAIR TO BED. PT STATES HIS LEFT FOOT HURTS TO BAD TO PUT WEIGHT ON IT. O2 @75% AFTER TRANSFER WHILE ON 2L HUMIDIFIED NC.
--- NOTE | 2018-09-13 15:20 | NUR ---
DR CENTENO NOTIFIED OF PTS PAIN. WAITING ON ORDERS.
--- NOTE | 2018-09-13 15:35 | NUR ---
PT/ UPDATED ON POC & TRANSFER TO [facility]. PT STATES HE WANTS TO STAY IN ICU.
--- NOTE | 2018-09-13 16:16 | NUR ---
IN PTS ROOM TO PASS PAIN MED, PT SLEEPING IN BED. SITTING IN CHAIR @BEDSIDE WATCHING TV. NO S/S OF DISTRESS AT THIS TIME. WILL CONTINUE TO MONITOR.
--- NOTE | 2018-09-13 17:30 | NUR ---
PT TRANSFERED TO [facility] BY STRETCHER WITH 02, ALL BELONGINGS & DINNER TRAY. TELE SET UP BY [facility].
--- NOTE | 2018-09-13 17:32 | NUR ---
PT TRANSFERED FROM ICU WITH STAFF AND AT SIDE. PT ORIENTED TO ROOM AND CALL LIGHT SYSTEM. DINNER AT BEDSIDE. PT VOICES NO CONCERNS. WILL CONTINUE TO MONITOR. CALL LIGHT IN REACH.
--- NOTE | 2018-09-13 19:15 | NUR ---
REPORT GIVEN BY MERRY. PATIENT AWAKE WITH AT THE BEDSIDE. RESP LABORED WHEN SPEAKING. PLAN OF CARE DISCUSSED. FALL PRECAUTIONS IN PLACE. PATIENT INFORMED TO CALL WITH ANY QUESTIONS OR CONCERNS. ASSESMENT COMPLETE AT THIS TIME.
--- NOTE | 2018-09-14 00:22 | NUR ---
PATIENT AWAKE AND WATCHING TV. RESP EVEN AND UNLOABORED. NO S/S OF DISTRESS NOTED.
--- NOTE | 2018-09-14 04:34 | NUR ---
PATIENT AWAKE AND SITTING IN CHAIR. RESP LABORED WHEN SPEAKING.
--- NOTE | 2018-09-14 07:00 | NUR ---
REPORT RECEIVED FROM ROSALINARN;PT APPEARS TO BE SLEEPING IN SEMI FOWLERS POSITION;RESPIRATIONS APPEAR EVEN AND UNLABORED ON O2 @ 2L VIA NC;NO S/S OF DISTRESS NOTED;TELE MONITORING IN PLACE;ACCUCHECK 118, NO COVERAGE NEEDED AT THIS TIME;ALL SAFETY PRECAUTIONS IN PLACE WITH BED IN THE LOWEST POSITION AND CALL LIGHT IN REACH;WILL CONTINUE TO MONITOR
--- NOTE | 2018-09-14 07:50 | NUR ---
CARRIEER MONITOR REPORTS 9 BEAT RUN OF V-TACH. CURRENT VS BP 123/77 HR 80;PT ASYMPTOMATIC.WILL CONTINUE TO MONITOR
[2018-09-14 08:08] VITALS: BP 123/77
--- NOTE | 2018-09-14 08:10 | NUR ---
PT RESTING IN HIGH FOWLERS POSITION, A&O X4;PT REPORTS ABDOMINAL PAIN RATING 6/10 ON THE PAIN SCALE AND REQUESTS PAIN MEDICATION, PT MEDICATED WITH PRN TYLENOL 650MG PO;ASSESSMENT COMPLETED;RESPIRATIONS SHALLOW AND LABORED ON O2 @ 2L VIA NC;ABDOMEN DISTENDED/SOFT ON PALPATION AND ACTIVE IN ALL 4 QUADRANTS;WEAK PEDAL PULSES WITH BILATERAL TRACE EDEMA NOTED;#20G TO LAC FLUSHED AND PATENT,SITE APPEARS HEALTHY;TELE MONITORING IN PLACE;ADDITIONAL BLANKET PROVIDED FOR COMFORT;PT DENIES ANY OTHER NEEDS AT THIS TIME AND IS ENCOURAGED TO CALL FOR ASSISTANCE IF NEEDED;CALL LIGHT IN REACH;WILL CONTINUE TO MONITOR
--- NOTE | 2018-09-14 09:14 | NUR ---
RT AT BEDSIDE
--- NOTE | 2018-09-14 10:03 | NUR ---
& EDWINA BAR,ANRP AT BEDSIDE DISCUSSING POC WITH PT AND FAMILY.
--- NOTE | 2018-09-14 10:45 | NUR ---
ER NOTIFIED UC THAT PT HAD ANOTHER 7 BEAT RUN OF V-TACH. VS BP 104/55 HR 76.ASYMPTOMATIC. PT REPORTS HE HAD A COUGHING SPELL. EBENEZER BOO NOTIFIED AND NO NEW ORDERS RECEIVED.
[2018-09-14 10:54] VITALS: BP 104/55
--- NOTE | 2018-09-14 11:15 | NUR ---
PT RESTING IN SEMI FOWLERS POSITION WITH FAMILY AT BEDSIDE;RESPIRATIONS REMAIN SHALLOW ON O2 @ 2L VIA NC;PT DENIES ANY CURRENT PAIN OR DISCOMFORTS;TELE MONITORING IN PLACE;ACCUCHECK 215, PT COVERED WITH SLIDING SCALE NOVOLOG;PT DENIES ANY ADDITIONAL NEEDS AND IS ENCOURAGED TO CALL FOR ASSISTANCE IF NEEDED;CALL LIGHT IN REACH;WILL CONTINUE TO MONITOR
[2018-09-14 15:06] VITALS: BP 109/63
--- NOTE | 2018-09-14 16:00 | NUR ---
PT RESTING IN HIGH FOWLERS POSITION WITH FAMILY AT BEDSIDE;RESPIRATIONS LABORED WITH COUGHING NOTED AT TIMES;O2 @ 2L VIA NC;PT REPORTS ABDOMINAL AND BLE PAIN RATING 7/10 ON THE PAIN SCALE AND REQUESTS PAIN MEDICATION,PT MEDICATED WITH PRN TYLENOL 650MG PO;ENCOURAGED ELEVATION OF BLE;IV SITE TO LAC PATENT;TELE MONITORING IN PLACE;ASSESSMENT UNCHANGED;COFFEE PROVIDED PER REQUEST;PT DENIES ANY ADDITIONAL NEEDS AT THIS TIME;ENCOURAGED TO CALL FOR ASSISTANCE IF NEEDED;CALL LIGHT IN REACH;WILL CONTINUE TO MONITOR
[2018-09-14 18:42] VITALS: BP 131/71
--- NOTE | 2018-09-14 19:00 | NUR ---
RECEIVED REPORT FROM NURSE ODELL, PATIENT RESTING IN BED, NOTED TO HAVE EXERTIONAL DYSPNEA, HOOKED TO O2 AT 2LPM VIA NC, FAMILY IN ROOM, CALL LIGHT AT REACH.
--- NOTE | 2018-09-14 21:55 | NUR ---
PATIENT ALERT AND ORIENTED X 3 ABLE TO MAKE NEEDS KNOWN, C/O PAIN ABDOMEN, PRN TYLENOL GIVEN WILL REEVALUATE, WITH SALINE LOCK G20 ON LAC PATENT, FLUSHES WELL HOOKED TO O2 @2LPM VIA NC, WITH EVEN SHALLOW BREATHING NOTED, LAST BM 09/14, BS 186 DUE INSULIN GIVEN, NOTED TO HAVE OCCASIONAL COUGH, NON PRODUCTIVE, WILL CONTINUE TO MONITOR, CALL LIGHT AT REACH.
[2018-09-15 00:30] VITALS: BP 144/82
--- NOTE | 2018-09-15 02:15 | NUR ---
PATIENT CURRENTLY RESTING IN BED EYES CLOSED, NO DISCOMFORTS NOTED AT THIS TIME, EVEN SHALLOW BREATHING CALL LIGHT AT REACH.
[2018-09-15 03:53] VITALS: BP 124/74
--- NOTE | 2018-09-15 04:30 | NUR ---
PATIENT SHOWERED THIS MORNING, CURRENTLY SITTING IN CHAIR REMAINS ON O2 @2LPM CALL LIGHT AT REACH.
[2018-09-15 05:36] LABS: HEMATOCRIT 33.9 % (39.0-50.0); HEMOGLOBIN 10.9 g/dl (14.0-18.0); IMMATURE GRANULOCYTES 0.8 % (0.0-5.0); MEAN CELL VOLUME 96.6 fL CALC (80.0-100.0); MEAN CORPUSCULAR HGB 31.1 pG CALC (26.0-32.0); MEAN CORPUSCULAR HGB CONC 32.2 g/L CALC (32.0-36.0); NEUT# 7.66 thou/uL (1.82-7.42); RED BLOOD COUNT 3.51 mill/uL (4.70-6.10); RED CELL DISTRI WIDTH 13.6 % (11.5-15.5)
[2018-09-15 05:50] LABS: CREATININE 2.6 mg/dL (0.7-1.3); MAGNESIUM 2.1 mg/dL (1.6-2.3)
[2018-09-15 07:32] VITALS: BP 122/53
--- NOTE | 2018-09-15 07:42 | NUR ---
REPORT RECEIVED FROM JENNIFER/RN; PT SITTING UP IN CHAIR RESP SHALLOW ON 02@3L NC; ASSESSMENT COMPLETED; A/O X3; TELE IN PLACE; #20G LAC; FLUSHED WELL; SITE APPEARS HEALTHY; C/O OF NO PAIN AT THE MOMENT; VOIDED 500CC CLEAR, YELLOW URINE; SAFETY PRECAUTION REINFORCE; CALL RANDLE IN REACH; PT NOW EATING BREAKFAST; WLL CONTINUE TO MONITOR.
[2018-09-15 10:55] VITALS: BP 132/63
--- NOTE | 2018-09-15 11:55 | NUR ---
PT SITTING UP IN BED EATING LUNCH AND WATCHING TV; RESP EVEN AND UNLABORED, 02@3L NC; VOIDING IN URINAL; CALL RANDLE IN REACH; VOICE NO CONCERNS. AT BEDSIDE.
--- NOTE | 2018-09-15 15:23 | NUR ---
PT SITTING UP IN THE COUCH; NUMERICAL CONTROL MACHINE TOOL OPERATOR GETTING VITALS; AT BEDSIDE; VOICE NO COMPLAINS;
--- NOTE | 2018-09-15 16:17 | NUR ---
PT SITTING UP IN CHAIR VISITING WITH HIS ; 02@3L NC; VOIDING IN URINAL; TELE IN PLACE; VOICE NO CONCERNS;
[2018-09-15 16:25] VITALS: BP 122/80
--- NOTE | 2018-09-15 19:00 | NUR ---
RECEIVED REPORT FROM NURSE KOENIG, PATIENT SITTING IN COUCH, RENAINS ON O2 @2LPM VIA NC, IN ROOM, SHALLOW, UNLABORED BREATHING CALL LIGHT AT REACH.
[2018-09-15 19:04] VITALS: BP 119/79
--- NOTE | 2018-09-15 20:00 | NUR ---
PATIENT ALERT ORINETEDX 4 ABLE TO MAKE NEEDS KNOWN, WITH SALINE LOCK ON LAC G20, REMAINS ON TELE @PACED 77, LAST BOWEL MOVEMENT ON 09/14, C/O HEADACHE PRN PAIN MEDICATION GIVEN WILL EVALUATE, REMAINS ON 02 @ 2LPM VIA NC SHALLOW, EVEN RESPIRATION, PATIENT ASSISTED BACK IN BED, IN ROOM CALL LIGHT AT REACH.
[2018-09-16] VITALS: BP 135/81
--- NOTE | 2018-09-16 00:11 | NUR ---
PATIENT RESTING IN BED, WATCHING TV, REMAINS ON O2@2LPM, EVEN UNLABORED RESPIRATION CALL LIGHT AT REACH.
--- NOTE | 2018-09-16 00:59 | NUR ---
RECEIVED A CALL FROM ED HEART RATE @113, ASSESSED PATIENT WAS SEEN COUGHING CHECKED HEART RATE 92 BPM, CALLED ED PATIENT BACK TO 98BPM. WILL CONTINUE TO MONITOR.
[2018-09-16 04:00] VITALS: BP 135/82
--- NOTE | 2018-09-16 04:29 | NUR ---
PATIENT SITTING IN CHAIR, REMAINS ON O2 @2LPM SHALLOW, UNLABORED RESPIRATION, CALL LIGHT WITHIN REACH.
[2018-09-16 05:56] LABS: HEMATOCRIT 35.3 % (39.0-50.0); HEMOGLOBIN 11.4 g/dl (14.0-18.0); MEAN CELL VOLUME 95.9 fL CALC (80.0-100.0); MEAN CORPUSCULAR HGB CONC 32.3 g/L CALC (32.0-36.0); RED BLOOD COUNT 3.68 mill/uL (4.70-6.10); RED CELL DISTRI WIDTH 13.5 % (11.5-15.5)
[2018-09-16 06:26] LABS: CREATININE 2.3 mg/dL (0.7-1.3); MAGNESIUM 2.2 mg/dL (1.6-2.3); POTASSIUM 3.9 mmol/l (3.5-5.1)
--- NOTE | 2018-09-16 07:00 | NUR ---
REPORT RECEIVED FROM DEANGELO KEANE;PT OOB RESTING IN RECLINER SLEEPING;RESPIRATIONS EVEN AND UNLABORED, SHALLOW ON O2 @ 2L VIA NC;NO S/S OF DISTRESS NOTED;TELE MONITORING IN PLACE;ACCUCHECK 98, NO COVERAGE NEEDED AT THIS TIME;ALL SAFETY PRECAUTIONS IN PLACE WITH CALL LIGHT IN REACH;WILL CONTINUE TO MONITOR
[2018-09-16 08:17] VITALS: BP 117/55
--- NOTE | 2018-09-16 08:20 | NUR ---
PT OOB RESTING ON COUCH;VS OBTAINED AND ASSESSMENT COMPLETED, A&O X4; RESPIRATIONS SHALLOW ON RA, PT INSTRUCTED TO WEAR OXYGEN WHICH IS LAYING AT BEDSIDE, O2 SATS @ 93%;ABDOMEN DISTENDED/SOFT ON PALPATION AND ACTIVE IN ALL 4 QUADRANTS;WEAK PEDAL PULSES WITH TRACE EDEMA NOTED TO BLE,ENCOURAGED ELEVATION OF BLE;#20G TO LAC FLUSHED AND PATENT,SITE APPEARS HEALTHY;TELE MONITORING IN PLACE;PT DENIES ANY CURRENT PAIN OR DISCOMFORTS, PAIN SCALE AND REPORTING EDUCATED;INSTRUCTED TO CALL FOR ASSISTANCE IF NEEDED;CALL LIGHT IN REACH;WILL CONTINUE TO MONITOR
--- NOTE | 2018-09-16 09:22 | NUR ---
CALLED DR. REILLY OFFICE SPOKE TO DUSTIN GAVE PT NAME, , DIAGNOSIS, AND REQUESTING PHYSICIAN.
--- NOTE | 2018-09-16 09:23 | NUR ---
CALLED DR. LIRA AT [phone] GOT HIS VOICEMAIL. LET HIM KNOW THERE WAS A CONSULTATION ON MED SURG FLOOR AND ROOM NUMBER AND TOLD HIM TO CALL FLOOR.
--- NOTE | 2018-09-16 09:55 | NUR ---
AT BEDSIDE DISCUSSING POC WITH PT AND FAMILY.
--- NOTE | 2018-09-16 11:10 | NUR ---
PT OOB RESTING ON COUGH WITH AT BEDSIDE;RESPIRATIONS EVEN AND UNLABORED ON RA;PT DENIES ANY CURRENT PAIN OR DISCOMFORTS;ACCUCHECK 191, PT WAS COVERED WITH SLIDING SCALE NOVOLOG PER ORDER;TELE MONITORING IN PLACE;ASSESSMENT UNCHANGED;ENCOURAGED TO CALL FOR ASSISTANCE IF NEEDED;CALL LIGHT IN REACH;WILL CONTINUE TO MONITOR
[2018-09-16 11:15] VITALS: BP 102/64
[2018-09-16] MEDS ORDERED: METOLAZONE2.5 MG PO (13:11)
[2018-09-16] MEDS ORDERED: BUMETANIDE1 MG PO (13:11)
--- NOTE | 2018-09-16 13:50 | NUR ---
ALL DISCHARGE INSTRUCTIONS PROVIDED, QUESTIONS ANSWERED;RX FOR BUMEX AND METOLAZONE PROVIDED.PT INSTRUCTED TO TAKE THE METOLAZONE ONLY Saturday AND SATURDAY.WEIGH HIMSELF DAILY AND FOLLOW UP WITH .LAB WORK IN ONE WEEK.IV SITE REMOVED WITH CATHETER INTACT AND TELE MONITORING REMOVED;PT DENIES ANY ADDITIONAL NEEDS;WHEELCHAIR TO BE PROVIDED FOR D/C HOME.SPOUSE TO PROVIDED TRANSPORATION HOME.
--- NOTE | 2018-09-16 14:02 | NUR ---
Discharge instructions given. Patient verbalizes understanding of same. Discharged in stable condition via Wheelchair to Home with spouse. All belongings sent with pt. Pt transported to [facility] for d/c home via wheelchair in stable condition accompanied by spouse and volunteer.
--- NOTE | 2018-09-16 14:40 | NUR ---
SPOKE WITH AMOS WOOD REGARDING CLARIFICATION ON PT RX. PT IS TO START TAKING BUMEX AND D/C LASIX PER ORDER.
== END 2018-09-16 14:00 | disposition home or self-care (01) | DRG 291 ==
LOC: ED 23:56 → ED-I 09-12 01:30 → ED 09-12 01:54 → ICU 09-12 01:55 → MS2 09-13 17:24
PROVIDERS: Emergency Medicine; Nurse Practitioner Family; ADMIT Internal Medicine; ATTEND Internal Medicine
DX: I13.0 Hypertensive heart and chronic kidney disease with heart failure and stage 1 through stage 4 chronic kidney disease, or unspecified chronic kidney disease (principal); I50.23 Acute on chronic systolic (congestive) heart failure; J44.1 Chronic obstructive pulmonary disease with (acute) exacerbation; J96.11 Chronic respiratory failure with hypoxia; N17.9 Acute kidney failure, unspecified; N18.9 Chronic kidney disease, unspecified; E11.22 Type 2 diabetes mellitus with diabetic chronic kidney disease; F17.210 Nicotine dependence, cigarettes, uncomplicated; E03.9 Hypothyroidism, unspecified; D63.1 Anemia in chronic kidney disease; I25.5 Ischemic cardiomyopathy; I25.10 Atherosclerotic heart disease of native coronary artery without angina pectoris; I25.2 Old myocardial infarction; Z79.4 Long term (current) use of insulin; Z95.810 Presence of automatic (implantable) cardiac defibrillator; Z95.1 Presence of aortocoronary bypass graft; Z95.5 Presence of coronary angioplasty implant and graft; Z79.02 Long term (current) use of antithrombotics/antiplatelets; Z79.82 Long term (current) use of aspirin

== ENCOUNTER 2018-09-29 12:59 | Observation (INO) | payer MEDICARE, MEDICAID ==
[~2018-09-29] VITALS: Ht 188 cm; Wt 117.0 kg
[~2018-09-29 12:59] MED LIST changes: +METOLAZONE2.5 MG PO; +NOVOLOG MIX SC; -PRAVASTATIN SOD40 MG PO; +PRAVASTATIN40 MG PO; +ZYLOPRIM100 MG PO
[2018-09-29 13:43] LABS: HEMATOCRIT 36.2 % (39.0-50.0); HEMOGLOBIN 11.7 g/dl (14.0-18.0); IMMATURE GRANULOCYTES 0.4 % (0.0-5.0); MEAN CELL VOLUME 94.3 fL CALC (80.0-100.0); MEAN CORPUSCULAR HGB 30.5 pG CALC (26.0-32.0); MEAN CORPUSCULAR HGB CONC 32.3 g/L CALC (32.0-36.0); NEUT# 5.21 thou/uL (1.82-7.42); RED BLOOD COUNT 3.84 mill/uL (4.70-6.10); RED CELL DISTRI WIDTH 13.5 % (11.5-15.5)
[2018-09-29 13:58] LABS: CREATININE 2.4 mg/dL (0.7-1.3); POTASSIUM 3.5 mmol/l (3.5-5.1)
[2018-09-29] MEDS ORDERED: METOLAZONE2.5 MG PO (15:23)
[2018-09-29] MEDS ORDERED: BUMETANIDE1 MG PO (15:24)
[2018-09-29] MEDS ORDERED: NOVOLOG FL100 UNIT/M SC (15:27)
[2018-09-29] MEDS ORDERED: TYLENOL500 MG PO (15:28)
[2018-09-29] MEDS ORDERED: ASPIRIN 8181 MG PO (15:29)
[2018-09-29] MEDS ORDERED: NITROGLYCE0.4 MG/SPR SL (15:31)
[2018-09-29 16:56] VITALS: BP 117/78
[2018-09-29 19:25] VITALS: BP 97/68
[2018-09-29 23:58] VITALS: BP 112/69
[2018-09-30 04:34] VITALS: BP 121/67
[2018-09-30 05:21] LABS: HEMOGLOBIN 10.5 g/dl (14.0-18.0); MEAN CELL VOLUME 92.2 fL CALC (80.0-100.0); MEAN CORPUSCULAR HGB 30.3 pG CALC (26.0-32.0); MEAN CORPUSCULAR HGB CONC 32.8 g/L CALC (32.0-36.0); RED BLOOD COUNT 3.47 mill/uL (4.70-6.10); RED CELL DISTRI WIDTH 13.1 % (11.5-15.5)
[2018-09-30 05:57] LABS: CREATININE 2.3 mg/dL (0.7-1.3); MAGNESIUM 1.9 mg/dL (1.6-2.3); POTASSIUM 3.8 mmol/l (3.5-5.1)
[2018-09-30 07:43] VITALS: BP 101/61
[2018-09-30 11:04] VITALS: BP 120/65
[2018-09-30 14:47] VITALS: BP 102/50
[2018-09-30 20:07] VITALS: BP 129/67
[2018-09-30 23:56] VITALS: BP 112/62
[2018-10-01 04:20] VITALS: BP 131/68
[2018-10-01 05:18] LABS: HEMATOCRIT 30.9 % (39.0-50.0); HEMOGLOBIN 10.3 g/dl (14.0-18.0); MEAN CELL VOLUME 89.8 fL CALC (80.0-100.0); MEAN CORPUSCULAR HGB 29.9 pG CALC (26.0-32.0); MEAN CORPUSCULAR HGB CONC 33.3 g/L CALC (32.0-36.0); RED BLOOD COUNT 3.44 mill/uL (4.70-6.10)
[2018-10-01 05:44] LABS: CREATININE 2.2 mg/dL (0.7-1.3); POTASSIUM 3.7 mmol/l (3.5-5.1)
[2018-10-01 07:30] VITALS: BP 120/53
[2018-10-01 11:19] VITALS: BP 105/52
[2018-10-01] MEDS ORDERED: DOXYCYCL HYC100 MG PO (12:07)
[2018-10-01] MEDS ORDERED: PREDNISONE10 MG PO (12:07)
== END 2018-10-01 12:40 | disposition home health service (06) ==
LOC: ED 12:59 → ED-I 15:16 → ED 15:37 → MS2 15:38
PROVIDERS: Family Medicine; ADMIT Internal Medicine; ATTEND Internal Medicine
DX: J44.1 Chronic obstructive pulmonary disease with (acute) exacerbation (principal); J96.21 Acute and chronic respiratory failure with hypoxia; I13.0 Hypertensive heart and chronic kidney disease with heart failure and stage 1 through stage 4 chronic kidney disease, or unspecified chronic kidney disease; E11.22 Type 2 diabetes mellitus with diabetic chronic kidney disease; N18.9 Chronic kidney disease, unspecified; I50.22 Chronic systolic (congestive) heart failure; E87.4 Mixed disorder of acid-base balance; D63.1 Anemia in chronic kidney disease; I25.10 Atherosclerotic heart disease of native coronary artery without angina pectoris; I25.5 Ischemic cardiomyopathy; F17.210 Nicotine dependence, cigarettes, uncomplicated; I25.2 Old myocardial infarction; Z79.4 Long term (current) use of insulin; Z95.810 Presence of automatic (implantable) cardiac defibrillator; Z95.1 Presence of aortocoronary bypass graft; Z95.5 Presence of coronary angioplasty implant and graft; Z99.81 Dependence on supplemental oxygen

== ENCOUNTER 2019-01-03 11:38 | Inpatient (IN) | payer MEDICARE ==
[~2019-01-03] VITALS: Ht 188 cm; Wt 126.1 kg
[~2019-01-03 11:38] MED LIST changes: +ASPIRIN 8181 MG PO; +DOXYCYCL HYC100 MG PO; +NITROGLYCE0.4 MG/SPR SL; +NOVOLOG FL100 UNIT/M SC; +PREDNISONE10 MG PO; +TYLENOL500 MG PO
--- NOTE | 2019-01-03 12:12 | NUR ---
PT TO ROOM FOR EXAM
--- NOTE | 2019-01-03 12:13 | NUR ---
ROOM NOT AVAILABLE AT THIS TIME, CHARGE NURSE BRODERICK NOTIFIED AND PT PLACED BACK INTO WAITING ROOM WITH
--- NOTE | 2019-01-03 12:45 | NUR ---
PATIENT TO ROOM VIA WHEELCHAIR. HOME O2 IN PLACE. ASSISTED ONTO STRETCHER. AT BEDSIDE
--- NOTE | 2019-01-03 13:19 | NUR ---
URINAL PROVIDED AT PT REQUEST
--- NOTE | 2019-01-03 14:00 | NUR ---
COFFEE GIVEN TO PATIENT PER REQUEST. WAITING FOR MD TO SEE PATIENT.
--- NOTE | 2019-01-03 14:50 | NUR ---
PATIENT MEDICATED WITH 4 MG OF MORPHINE FOR LOWER EXTREMITY PAIN 07/28.
[2019-01-03 14:57] LABS: IMMATURE GRANULOCYTES 0.3 % (0.0-5.0); MEAN CELL VOLUME 91.1 fL CALC (80.0-100.0); MEAN CORPUSCULAR HGB 28.6 pG CALC (26.0-32.0); MEAN CORPUSCULAR HGB CONC 31.4 g/L CALC (32.0-36.0); NEUT# 5.48 thou/uL (1.82-7.42); RED BLOOD COUNT 3.84 mill/uL (4.70-6.10); RED CELL DISTRI WIDTH 16.7 % (11.5-15.5)
[2019-01-03 15:22] LABS: ALBUMIN 3.7 g/dL (3.2-5.0); BILIRUBIN, TOTAL 0.6 mg/dL (0.0-1.4); CREATININE 2.1 mg/dL (0.7-1.3); POTASSIUM 3.5 mmol/l (3.5-5.1)
--- NOTE | 2019-01-03 15:45 | NUR ---
PATIENT NOTED TO HAVE RUN OF V-TACH. PATIENT ALERT AND ORIENTED IN ROOM. DENIES ANY SYMPTOMS.
--- NOTE | 2019-01-03 16:05 | NUR ---
PATIENT'S [employer]'S PACEMAKER INTERROGATED.
--- NOTE | 2019-01-03 17:07 | NUR ---
AT BEDSIDE TO DISCUSS RESULTS AND PLANS TO ADMIT.
--- NOTE | 2019-01-03 17:35 | NUR ---
PATIENT HAS DIMISHED LUNG SOUNDS. REPORTS BEING HOME O2 DEPENDENT.
--- NOTE | 2019-01-03 18:10 | NUR ---
PATIENT GARNETT FIXER LIGHT, REQUESTING PAIN MEDICATION. PAULA BLAND INFORMED. WAITING ON ORDERS.
--- NOTE | 2019-01-03 18:22 | NUR ---
REPORT GIVEN TO DEANGELO MYERS.
--- NOTE | 2019-01-03 18:25 | NUR ---
PATIENT TRANSPORTED TO [facility] VIA WHEELCHAIR WITH TELE AND O2 IN PLACE. PATIENT REFUSING GOWN. DEANGELO MYERS AT BEDSIDE. CARE RELINQUISHED.
--- NOTE | 2019-01-03 18:28 | NUR ---
PT ARRIVED TO THE FLOOR VIA WHEELCHAIR ACCOMPANIED BY ER STAFF. PT ALERT AND ORIENTED. RESPIRATIONS SHALLOW ON O2 @ 2L VIA NC. LUNGS SOUND CLEAR/DIMINISHED. PEDAL PULSES WEAK. PT REPORT PAIN OF A 8/10 IN HIS RIGHT KNEE DOWN TO HIS FOOT. PT ORIENTED TO ROOM AND CALL RANDLE SYSTEM. TELE IN PLACE. PT PROVIDED WITH A SANDWICH AND DIET COKE PER REQUEST. CALL RANDLE WITHIN REACH. WILL CONTINUE TO MONITOR.
[2019-01-03 19:42] VITALS: BP 134/82
[2019-01-03 20:42] LABS: URINE BILIRUBIN - DIPSTICK NEGATIVE (NEGATIVE); URINE BLOOD DIPSTICK NEGATIVE (NEGATIVE); URINE COLOR YELLOW; URINE GLUCOSE - DIPSTICK NEGATIVE (NEGATIVE); URINE KETONE NEGATIVE (NEGATIVE); URINE LEUK ESTERASE NEGATIVE (NEGATIVE); URINE NITRITE - DIPSTICK NEGATIVE (Negative); URINE PROTEIN - DIPSTICK NEGATIVE (NEG-TRACE); URINE SPECIFIC GRAVITY <=1.005; URINE UROBILINOGEN - DIPSTICK 0.2 E.U./dL (0.2)
[2019-01-04 00:30] VITALS: BP 119/65
--- NOTE | 2019-01-04 00:55 | NUR ---
PT COMPLAINS OF SHOULDER PAIN THAT IS NOW IN HIS CHEST, EKG TO BE OBTAINED. WILL CONTINUE TO MONITOR.
--- NOTE | 2019-01-04 04:02 | NUR ---
PT RESTING IN BED. RESPIRATIONS SHALLOW ON O2 @ 2L VIA NC. TELE IN PLACE. CALL RANDLE WITHIN REACH. WILL CONTINUE TO MONITOR.
[2019-01-04 04:20] VITALS: BP 120/58
[2019-01-04 04:50] LABS: HEMATOCRIT 32.7 % (39.0-50.0); HEMOGLOBIN 10.3 g/dl (14.0-18.0); IMMATURE GRANULOCYTES 0.5 % (0.0-5.0); MEAN CELL VOLUME 91.6 fL CALC (80.0-100.0); MEAN CORPUSCULAR HGB 28.9 pG CALC (26.0-32.0); MEAN CORPUSCULAR HGB CONC 31.5 g/L CALC (32.0-36.0); NEUT# 3.88 thou/uL (1.82-7.42); RED BLOOD COUNT 3.57 mill/uL (4.70-6.10); RED CELL DISTRI WIDTH 16.3 % (11.5-15.5)
[2019-01-04 05:40] LABS: CREATININE 2.1 mg/dL (0.7-1.3); POTASSIUM 3.5 mmol/l (3.5-5.1)
--- NOTE | 2019-01-04 07:00 | NUR ---
SHIFT CHANGE REPORT, PT AWAKE ALERT AND ORIENTED SITTING UP ON SIDE OF BED, C/O PAIN TO RIGHT HALLUX RADIATING TO KNEE, TELE MONITOR IN PLACE, CONCERNS ADDRESSED, CALL RANDLE IN REACH.
[2019-01-04 08:07] VITALS: BP 107/58
--- NOTE | 2019-01-04 12:15 | NUR ---
RALAXING IN BED AFTER HAVING MEAL, HEAD MACHINIST ROUNDING AND DISCUSSING PLAN OF CARE.
[2019-01-04 13:32] VITALS: BP 105/60
--- NOTE | 2019-01-04 13:40 | NUR ---
PT SEVAERELY ANXIOUSLY AT THIS TIME, DRY HEAVING, PULLING OFF TELE MONITOR, O2 CANAULA, WANTING TO STAND UP AND STATING HE IS HAVING A PANIC ATTACK, HYPERVENTILATING. LUBRICATOR GRANULATOR NOTIFIED AND ORDERED BREATHING TX, RESP NOTIFIED AND ADMINISTERING ORDERS AT THIS TIME. NON-COMPLIANT AT THIS TIME AND IS BEING ENCOURAGED AND EDUCATED ON ORDERS AND REASONS FOR THEM. HE IS CALMING DOWN SOMEWHAT NOW AND COOPERATING, VITAS SIGNS MEASURED AND RECORDED, WILL CONTINUE TO MONITOR.
--- NOTE | 2019-01-04 13:48 | NUR ---
BLOOD GLUCOSE MEASURED = 133 AT THIS TIME.
--- NOTE | 2019-01-04 15:03 | NUR ---
S: ANH BYRD SR is a 68 M who presents with SSTI. He has a history of HTN,DM,DE. All medications in patient's chart were reviewed. O: VS: BP 105/60, P 87, RR 14,T 96.6 W 122KG, HT 74IN, Scr= 2.1,CrCl= 46ml/min A: Blood culture <is pending/show> which is sensitive to <>. Urine culture <is pending/show> which is sensitive to <>. P: Patient is on AZACTAM 1 GRAM Q8H. Vancomycin ordered for pharmacy to dose. Start Vancomycin 1750MG IV Q24H. Vancomycin trough is drawn before the 4th dose on [id number]. Vancomycin goal trough is between <10-15 mcg/ml>. Pharmacy will follow and or advise on antibiotics use as needed. SOPHIA PADROND
[2019-01-04 15:18] VITALS: BP 122/76
--- NOTE | 2019-01-04 15:26 | NUR ---
RESTING IN BED QUIETLY AT THIS TIME, ANXIETY RESOLVED FOR NOW, RESPIRATORY THERAPIST MONITORING BREATHING AFTER ABG RESULTED, INTERNET SPECIALIST NOTIFIED OF RESULTS. SPOUSE AT BEDSIDE.
[2019-01-04 19:00] VITALS: BP 92/63
--- NOTE | 2019-01-04 19:06 | NUR ---
REPORT RECEIVED FROM DEANGELO LOPEZ. PT SITTING ON THE SIDE OF THE BED. NO S/S OF DISTRESS AT THIS TIME. SAFETY PRECAUTIONS IN PLACE. WILL CONTINUE TO MONITOR.
--- NOTE | 2019-01-04 20:26 | NUR ---
PT RESTING IN BED. ALERT AND ORIENTED. RESPIRATIONS SHALLOW ON O2 @ 2L VIA NC. LUNGS SOUND DIMINISHED. PEDAL PULSES WEAK. COVERED PT WITH BLANKETS PER REQUEST. CALL RANDLE WITHIN REACH. TELE IN PLACE. WILL CONTINUE TO MONITOR.
[2019-01-05] VITALS (7 sets, daily range): BP systolic 95–136; BP diastolic 59–80
--- NOTE | 2019-01-05 00:15 | NUR ---
PT RESTING IN BED. RESPIRATIONS SHALLOW ON O2 @ 2L VIA NC. TELE IN PLACE. CALL RANDLE WITHIN REACH. WILL CONTINUE TO MONITOR.
--- NOTE | 2019-01-05 05:10 | NUR ---
PT RESTING IN BED. NO S/S OF DISTRESS AT THIS TIME. CALL RANDLE WITHIN REACH. WILL CONTINUE TO MONITOR.
[2019-01-05 05:18] LABS: HEMATOCRIT 32.9 % (39.0-50.0); HEMOGLOBIN 10.3 g/dl (14.0-18.0); IMMATURE GRANULOCYTES 0.3 % (0.0-5.0); MEAN CELL VOLUME 91.9 fL CALC (80.0-100.0); MEAN CORPUSCULAR HGB 28.8 pG CALC (26.0-32.0); MEAN CORPUSCULAR HGB CONC 31.3 g/L CALC (32.0-36.0); NEUT# 3.63 thou/uL (1.82-7.42); RED BLOOD COUNT 3.58 mill/uL (4.70-6.10); RED CELL DISTRI WIDTH 16.4 % (11.5-15.5)
[2019-01-05 05:45] LABS: CREATININE 2.2 mg/dL (0.7-1.3); MAGNESIUM 1.8 mg/dL (1.6-2.3); POTASSIUM 3.4 mmol/l (3.5-5.1)
--- NOTE | 2019-01-05 07:00 | NUR ---
SHIFT CHANGE REPORT, PT AWAKE AND ALERT RESTING IN BED, O2 @ 2L VIA NC IN PLACE, TELE MONITOR IN PLACE, PT PREFERS TO STAY COVERED WITH LIGHT SHEET RATHER THAN WEARING A GOWN WHICH HE STATED MAKES HIM VERY ANXIOUS, REQUEST HONORED, CALL RANDLE IN REACH.
--- NOTE | 2019-01-05 12:00 | NUR ---
SITTING UP IN RECLINER, STACK SUPERVISOR ROUNDED, ALL NEEDS ADDRESSED.
--- NOTE | 2019-01-05 16:00 | NUR ---
RESTING IN BED, PAIN CONCERNS ADDRESSED, SPOUSE AT BEDSIDE.
--- NOTE | 2019-01-05 19:30 | NUR ---
PATIENT RESTING IN BED AT THIS TIME WITH O2 VIA NASAL CANNULA IN PLACE. AWAKE ALERT AND ORIENTEDX3. TELE MONITOR IN PLACE. IV SITE TO RIGHT FOREARM WITH IVF NS PATENT AND INFUSING AT 100CC/HR. SITE APPEARS HEALTHY AT THIS TIME. SAFETY PRECAUTIONS REINFORCED. CALL LIGHT IN REACH. WILL CONT TO MONITOR.
--- NOTE | 2019-01-06 01:27 | NUR ---
PATIENT RESTING IN BED WITH NO COMPLAINTS AT THIS TIME. RECIEVED COPY OF TELE MONITOR FROM ER AT APPROX 0058 THAT PATIENT WAS IN V-TACH. RECIEVED CALL FROM BALTAZAR ANDINO AT 0107 TO LET STAFF KNOW THAT PATIENT WAS NOW BACK TO PACED RYTHM. WILL CONT TO MONITOR.
--- NOTE | 2019-01-06 03:33 | NUR ---
PATIENT FOUND IN THE BR-SOB WITH O2 OFF. PATIENT C/O NO STAFF CAME WHEN NURSE CALL LIGHT WAS PUT ON. TELE IS OFF WELL. URINAL IS FULL WITH 1000CC OF CLEAR YELLOW URINE. ASSISTED BACK TO THE BED. O2 REAPPLIED AND TELE MONITOR PLACE BACK ON. BED ALARM PLACE FOR PATIENT SAFETY. PATIENT DOOR LEFT OPEN. PATIENT WITH LOUD NON-PRODUCTIVE COUGH. SAFETY PRECAUTIONS REINFORCED. CALL LIGHT IN REACH. WILL CONT TO MONITOR.
[2019-01-06 04:03] VITALS: BP 131/88
--- NOTE | 2019-01-06 04:25 | NUR ---
PATIENT CONT TO VOID MULTIPLE COMPLAINTS ABOUT STAFF-PATIENT IS LOUD WITH NUMEROUS COMPLAINTS. KVNG VARELA SPEAKING WITH PATIENT AT THIS ITME. TELE MONITOR IN PLACE. IVF PATENT AND INFUSING AT 100CC/HR VIA RIGHT FOREARM SITE. CALL LIGHT IN REACH. WILL CONT TO MONITOR.
[2019-01-06 08:00] VITALS: BP 104/64
--- NOTE | 2019-01-06 08:00 | NUR ---
PT SEEN AWAKE, ALERT, ORIENTED X 3. PT WITH PAIN TO LEFT FOOT, PROVIDED PAIN MED ORDERED. PT WITH SEVERAL REQUESTS, COMPLETED POSSIBLE. NO ACUTE DISTRESS NOTED.
[2019-01-06 08:09] LABS: HEMATOCRIT 32.3 % (39.0-50.0); HEMOGLOBIN 10.4 g/dl (14.0-18.0); IMMATURE GRANULOCYTES 0.5 % (0.0-5.0); MEAN CORPUSCULAR HGB 28.7 pG CALC (26.0-32.0); MEAN CORPUSCULAR HGB CONC 32.2 g/L CALC (32.0-36.0); NEUT# 6.92 thou/uL (1.82-7.42); RED BLOOD COUNT 3.63 mill/uL (4.70-6.10); RED CELL DISTRI WIDTH 15.9 % (11.5-15.5)
[2019-01-06 08:51] LABS: POTASSIUM 3.6 mmol/l (3.5-5.1)
[2019-01-06 10:45] VITALS: BP 123/73
--- NOTE | 2019-01-06 11:13 | NUR ---
PT SEEN BY DR NASH THIS MORNING. PLAN OF CARE REVIEWED, TO BE DISCHARGED TOMORROW WITH HOME HEALTH FOLLOWING.
--- NOTE | 2019-01-06 12:24 | NUR ---
PT IN SHOWER THIS MORNING, ASSIST FROM HIS . NO REAL CHANGE IN STATUS NOTED.
[2019-01-06 15:33] VITALS: BP 112/64
--- NOTE | 2019-01-06 15:38 | NUR ---
PT SEEN RESTING IN THE CHAIR AT BEDSIDE WITH LEFT LEG ELEVATED. PT REMAINS BEFORE, NO DISTRESS, NO COMPLAINTS.
[2019-01-06 19:46] VITALS: BP 110/69
[2019-01-06 23:45] VITALS: BP 108/73
[2019-01-07 04:15] VITALS: BP 118/69
[2019-01-07 08:00] VITALS: BP 100/56
--- NOTE | 2019-01-07 08:00 | NUR ---
PT AWAKE, ALERT, ORIENTED X 3. LUNGS DIMINISHED WITH COARSENESS TO BASES, 3 LPM. ABDOMEN DISTENDED SOFT, BM YESTERDAY. PT ANTICIPATES DC LATER TODAY.
[2019-01-07] MEDS ORDERED: MEDDOSEPAK PO (09:23)
[2019-01-07] MEDS ORDERED: CIPROFLOXACN500 MG PO (09:29)
[2019-01-07 11:06] VITALS: BP 134/77
[2019-01-07 12:13] LABS: HEMATOCRIT 31.1 % (39.0-50.0); IMMATURE GRANULOCYTES 0.6 % (0.0-5.0); MEAN CELL VOLUME 90.1 fL CALC (80.0-100.0); MEAN CORPUSCULAR HGB CONC 32.2 g/L CALC (32.0-36.0); NEUT# 8.36 thou/uL (1.82-7.42); RED BLOOD COUNT 3.45 mill/uL (4.70-6.10); RED CELL DISTRI WIDTH 16.1 % (11.5-15.5)
--- NOTE | 2019-01-07 12:15 | NUR ---
PT HAS BEEN DISCHARGED TO HOME. VERBALIZES UNDERSTANDING OF DC INSTRUCTIONS, PT TAKEN TO LOBBY VIA WHEELCHAIR. PT LEAVES IN STABLE CONDITION, ADVISED TO RETURN NEEDED.
[2019-01-07 12:32] LABS: CREATININE 1.9 mg/dL (0.7-1.3); POTASSIUM 3.6 mmol/l (3.5-5.1)
== END 2019-01-07 12:16 | disposition home health service (06) | DRG 603 ==
LOC: ED 11:38 → ED-I 12:58 → ED 12:58 → ED-I 17:02 → ED 17:56 → MS2 17:57
PROVIDERS: Emergency Medicine; Nurse Practitioner Family; ADMIT Internal Medicine; ATTEND Internal Medicine
DX: L03.115 Cellulitis of right lower limb (principal); I47.2 Ventricular tachycardia; I13.0 Hypertensive heart and chronic kidney disease with heart failure and stage 1 through stage 4 chronic kidney disease, or unspecified chronic kidney disease; I50.32 Chronic diastolic (congestive) heart failure; J96.11 Chronic respiratory failure with hypoxia; E11.22 Type 2 diabetes mellitus with diabetic chronic kidney disease; N18.3 Chronic kidney disease, stage 3 (moderate); J43.9 Emphysema, unspecified; I25.10 Atherosclerotic heart disease of native coronary artery without angina pectoris; I25.5 Ischemic cardiomyopathy; E11.69 Type 2 diabetes mellitus with other specified complication; M10.072 Idiopathic gout, left ankle and foot; E78.5 Hyperlipidemia, unspecified; I48.91 Unspecified atrial fibrillation; N40.0 Benign prostatic hyperplasia without lower urinary tract symptoms; E03.9 Hypothyroidism, unspecified; F41.0 Panic disorder [episodic paroxysmal anxiety]; F17.210 Nicotine dependence, cigarettes, uncomplicated; I25.2 Old myocardial infarction; B95.7 Other staphylococcus as the cause of diseases classified elsewhere; Z88.1 Allergy status to other antibiotic agents; Z99.81 Dependence on supplemental oxygen; Z95.1 Presence of aortocoronary bypass graft; Z79.02 Long term (current) use of antithrombotics/antiplatelets; Z79.4 Long term (current) use of insulin; Z95.5 Presence of coronary angioplasty implant and graft; Z95.810 Presence of automatic (implantable) cardiac defibrillator
CPT/HCPCS: G0378; J1650; J1956; J3370

== ENCOUNTER 2019-04-14 11:14 | Inpatient (IN) | payer MEDICARE ==
[~2019-04-14] VITALS: Ht 188 cm; Wt 113.9 kg
[~2019-04-14 11:14] MED LIST changes: +MEDDOSEPAK PO
--- NOTE | 2019-04-14 11:14 | NUR ---
PT TO ROOM VIA EMS STRETCHER.
--- NOTE | 2019-04-14 12:00 | NUR ---
PT ARRIVED VIA EMS WITH GENERALIZED WEAKNESS AND VOMITING THAT HAS WORSENED EVER SINCE HE LEFT A [facility]OCERY STORE. PT STATES HAVING ACHES AND PAINS ALL OVER BODY. PT UNABLE TO LIFT LIMBS WITHOUT PAIN OR LEGS. PT HAS EYES CLOSED AND RESPONDS TO VERBAL. HE IS AOX4. WILL CONTINUE TO MONITOR.
[2019-04-14 12:10] LABS: HEMATOCRIT 37.6 % (39.0-50.0); HEMOGLOBIN 12.5 g/dl (14.0-18.0); IMMATURE GRANULOCYTES 2.7 % (0.0-5.0); MEAN CELL VOLUME 86.4 fL CALC (80.0-100.0); MEAN CORPUSCULAR HGB 28.7 pG CALC (26.0-32.0); MEAN CORPUSCULAR HGB CONC 33.2 g/L CALC (32.0-36.0); NEUT# 5.57 thou/uL (1.82-7.42); RED BLOOD COUNT 4.35 mill/uL (4.70-6.10); RED CELL DISTRI WIDTH 16.9 % (11.5-15.5)
[2019-04-14 12:43] LABS: ALBUMIN 3.7 g/dL (3.2-5.0); BILIRUBIN, TOTAL 0.8 mg/dL (0.0-1.4); CREATININE 2.7 mg/dL (0.7-1.3); TOTAL PROTEIN 6.9 g/dL (6.3-8.2)
[2019-04-14 12:48] LABS: POTASSIUM 2.4 mmol/l (3.5-5.1)
--- NOTE | 2019-04-14 13:00 | NUR ---
PT RESTING ON STRETCHER WITH SPOUCE AT BEDSIDE. CALL LIGHT WITHIN REACH
--- NOTE | 2019-04-14 13:30 | NUR ---
POTASSIUM AND MAGNESIUM INITIATED. TWO IVs PATENT ONE ON EACH ARM.
--- NOTE | 2019-04-14 14:35 | NUR ---
ASSISTED PT TO RADIOLOGY FOR CONTINUED POTASSIUM IV INITIATION AND OBSERVATION WITH MIGRATORY WORKER ATTACHED.
--- NOTE | 2019-04-14 15:25 | NUR ---
PT RESTING ON STRETCHER, MORE ALERT AND IS TALKATIVE WITH STAFF AND SPOUCE WHO IS AT BEDSIDE. PT UPDATED ON PENDING ADMISSION. CALL LIGHT WITHIN REACH. PT REQUESTED FOR WARM BLANKETS
[2019-04-14] MEDS ORDERED: OXY1 (16:48)
--- NOTE | 2019-04-14 17:41 | NUR ---
REPORT TORRI TEJADA
--- NOTE | 2019-04-14 17:49 | NUR ---
PT TRANSPORTED TO MED SURG VIA STRETCHER STABLE AND IN NO DISTRESS. CARE ASSUMED TO TERRELL Admission Note Report Given to: Transported by: Wheelchair X Stretcher Transported with: X Nurse Transporter X Patent IV X O2 X Fiber Locking Supervisor Location: ICU X [facility]
--- NOTE | 2019-04-14 18:05 | NUR ---
PATIENT ABLE TO MAKE NEEDS KNOWN, NO C/O PAIN, NO S/S RESP DISTRESS, PATIENT ON O2 VIA NC PATIENT OXYGEN DEPENDENT, PATIENT BLOOD GLUCOSE 171, PATIENT LAST BOWEL MOVEMENT 04/14/19, PATIENT IS HEART RHYTHM PACED, WILL CONTINUE TO MONITOR PATIENT, CALL LIGHT WITHIN REACH
[2019-04-14 18:19] VITALS: BP 123/74
[2019-04-14 18:49] LABS: URINE BILIRUBIN - DIPSTICK NEGATIVE (NEGATIVE); URINE BLOOD DIPSTICK NEGATIVE (NEGATIVE); URINE COLOR YELLOW; URINE GLUCOSE - DIPSTICK NEGATIVE (NEGATIVE); URINE KETONE NEGATIVE (NEGATIVE); URINE LEUK ESTERASE NEGATIVE (NEGATIVE); URINE NITRITE - DIPSTICK NEGATIVE (Negative); URINE PROTEIN - DIPSTICK NEGATIVE (NEG-TRACE); URINE SPECIFIC GRAVITY 1.025; URINE UROBILINOGEN - DIPSTICK 0.2 E.U./dL (0.2)
--- NOTE | 2019-04-14 19:30 | NUR ---
PT FOUND LAYING IN BED, SEMIFOWLERS POSITION. CALL LIGHT WITHIN REACH. PT EASY TO WAKE. PHYSICAL ASSESMENT COMPLETED. PLAN OF CARE REVIEWED. PT VERBALIZES UNDERSTANDING AND DENIES QUESTIONS AT THIS TIME. DENIES FURTHER NEEDS AT THIS TIME. CALL RANDLE WITHIN REACH, AGREES TO CALL PRN.
--- NOTE | 2019-04-14 20:25 | NUR ---
SERUM K IS 2.6, DR. RITCHIE MADE AWARE. STATES HE WILL BE ORDERING KCL 60 MEQ PO. NO FURTHER ORDERS AT THIS TIME.
--- NOTE | 2019-04-14 21:45 | NUR ---
BEDSIDE GLUCOSE CHECK 201 @ 2100, SEE MAR FOR COVERAGE. PT REQUEST TO TAKE PILLS W/ APPLESAUCE BECAUSE KCL TABLETS ARE TO LARGE. PT TOLERATED MEDS WHOLE W/ APPLESAUCE. DIABETIC HS SNACK PROVIDED.
--- NOTE | 2019-04-14 23:05 | NUR ---
PT REQUEST ASSIST TO BATHROOM TO HAVE A BM. STANDBY ASSIST PROVIDED. PTS GAIT IS UNSTEADY. REINFORCED FALL PRECAUTIONS TO PT, INCLUDING NOT GETTING UP W/O ASSIST. PT VERBALIZES UNDERSTANDING. ASSITED TO SIT ON TOILET. PT UTILIZES BATHROOM CALL LIGHT APPROPRIATELY. NO BM BUT REPORTS LARGE AMOUNTS OF FLATUS. ASSITED PT BACK TO BED. OFFERED HAND BUSINESS SUPPORT SPECIALIST OR WET WASH CLOTH FOR HAND HYGIENE PT REFUSES BOTH.
--- NOTE | 2019-04-14 23:22 | NUR ---
PER Inna MCKEON LPN/ LEASING SPECIALIST PT HAD A 5 BEAT RUN OF V-TACH, NON SUSTAINED ON TELE. PT IS CURRENTLY PACED ON TELE. PT IS SITTING UP IN BED WATCHING TV AND DRINKING BLACK DECAF COFFEE. NO APPARENT DISTRESS, PT DENIES SYMPTOMS. PT GROSSLY ASYMPTOMATIC AT THIS TIME. WILL CON'T TO MONITOR.
[2019-04-15 00:05] VITALS: BP 98/46
--- NOTE | 2019-04-15 00:24 | NUR ---
PT'S ROUTINE 0000 VS: B/P 98/46, PACED 93, T98.2, RESP 20, O2SAT 95% ON O2 AT 2L VIA NC. VS AND PREVIOUS 5 BEAT RUN OF VTACH REPORTED TO DR. RITCHIE, NO ORDERS RECEIVED AT THIS TIME. PT IS LAYING IN BED WATCHING TV, NO DISTRESS, RESP REG/UNLABORED, ASYMPTOMATIC, DENIES NEEDS AT THIS TIME. CALL RANDLE WITHIN REACH, AGREES TO CALL PRN. WILL CON'T TO MONITOR.
--- NOTE | 2019-04-15 04:42 | NUR ---
PT SITTING UP IN BED, TV ON. NO ACUTE CHANGES IN ASSESMENT. DENIES NEEDS AT THIS TIME. CALL RANDLE WITHIN REACH. AGREES TO CALL PRN.
[2019-04-15 05:55] VITALS: BP 90/54
--- NOTE | 2019-04-15 05:56 | NUR ---
B/P 90/54, PACED 103, PT ASYMPTOMATIC. SITTING UP DRINKING COFFEE. REPORTED TO DR. WOODARD, ORDER FOR NS@ 50ML/H IV. SEE MAR.
[2019-04-15 06:24] LABS: CREATININE 2.8 mg/dL (0.7-1.3); POTASSIUM 3.1 mmol/l (3.5-5.1)
--- NOTE | 2019-04-15 06:37 | NUR ---
AM LABS CALLED TO DR OREILLY, INCLUDING CRITICAL BUN OF 84. NO NEW ORDERS AT THIS TIME.
[2019-04-15] MEDS ORDERED: ISOSORB MONO30 MG PO (09:15)
[2019-04-15] MEDS ORDERED: LEXAPRO10 MG PO (09:15)
--- NOTE | 2019-04-15 10:24 | NUR ---
I SPOKE WITH OSMAN FROM OFFICE ([place]) AT 1022 AM. THE CONSULT WAS PUT IN ON 04/14/19 AT 0920 AM BUT THE INFORMATION WAS NOT CALLED. THE CONSULTATION WAS FOR CHF. #[phone].
[2019-04-15 11:23] VITALS: BP 96/67
[2019-04-15 15:32] VITALS: BP 109/78
[2019-04-15 19:02] VITALS: BP 115/79
--- NOTE | 2019-04-15 19:40 | NUR ---
ASSESSMENT COMPLETED. IV SITE PATENT AND INFUSING ORDERED IVF WELL. COFFEE PROVIDED PER REQUEST. EBCOURAGED TO ELEVATE BILATERAL HEELS DUE TO THE REDNESS, THEY ARE BLANCHABLE. O2 INFUSING PER NC PER ORDER. ENCOURAGED TO CALL FOR ANY NEEDS.
[2019-04-15 23:34] VITALS: BP 113/63
--- NOTE | 2019-04-16 00:05 | NUR ---
PT. SITTING UP IN BED AND REPORTS SOB, EDUCATED ON DECREASE INTAKE OF COFFEE R/T EXCESSIVE FLUIDS. NOTIFIED RT FOR ELLIE [place].
--- NOTE | 2019-04-16 02:55 | NUR ---
RESTING IN BED ON RIGHT SIDE WITH EYES CLOSED; RESP. EVEN AND UNLABORED.
[2019-04-16 04:20] VITALS: BP 115/65
--- NOTE | 2019-04-16 04:21 | NUR ---
PT. SITTING UP IN BED WITH NO DISTRESS NOTED; RESP. EVEN AND UNLABORED. O2 INFUSING PER NC PER ORDER. ENCOURAGED TO CALL FOR ANY NEEDS. CALL LIGHT IS IN REACH. WILL CONTINUE TO MONITOR.
--- NOTE | 2019-04-16 05:22 | NUR ---
PT. SITTING UP IN BED WITH NO DISTRESS NOTED; DENIES NEEDS. URINAL EMPTIED. FRESH WATER PROVIDED. CALL LIGHT IS IN REACH.
[2019-04-16 05:46] LABS: HEMATOCRIT 33.2 % (39.0-50.0); HEMOGLOBIN 10.8 g/dl (14.0-18.0); IMMATURE GRANULOCYTES 2.7 % (0.0-5.0); MEAN CELL VOLUME 89.2 fL CALC (80.0-100.0); MEAN CORPUSCULAR HGB CONC 32.5 g/L CALC (32.0-36.0); NEUT# 3.39 thou/uL (1.82-7.42); RED BLOOD COUNT 3.72 mill/uL (4.70-6.10); RED CELL DISTRI WIDTH 17.2 % (11.5-15.5)
[2019-04-16 06:08] LABS: ALBUMIN 3.1 g/dL (3.2-5.0); CREATININE 2.5 mg/dL (0.7-1.3); MAGNESIUM 2.7 mg/dL (1.6-2.3); POTASSIUM 3.3 mmol/l (3.5-5.1)
[2019-04-16 06:21] LABS: BILIRUBIN, TOTAL 0.4 mg/dL (0.0-1.4)
[2019-04-16 07:52] VITALS: BP 126/77
--- NOTE | 2019-04-16 07:52 | NUR ---
PT SITTING IN BED. A&O X3. PT ASKING FOR HIS SHOWING SIGNS OF BEING UPSET , EXPLAINED TO PT THAT I WAS NOT SURE WHERE HIS CURRENTLY WAS BUT THAT SHE WOULD BE COMING TO SEE HIM LATER TODAY. PT CALMED DOWN AND VERBALIZED UNDERSTANDING. ASSISTED PT WITH URINAL. OUTPUT A TOTAL OF 120 THIS MORNING. NO OTHER NEEDS FROIM PT AT THIS TIME. ASSESSMENT COMPLETED. CALL LIGHT IN REACH. CONTINUE TO MONITOR.
--- NOTE | 2019-04-16 09:45 | NUR ---
PER KRISS STAFFORD, PT VERBALIZED THAT HE WANTED TO LEAVE THE FACILITY AND WAS READY TO GET UP AND LEAVE. WENT INTO THE ROOM AND ASKED PT WHAT THE MATTER WAS AND WHY HE WANTED TO LEAVE, PER THE PT "IF YOU ARE NOT GOING TO GET ME ANY MORE GRITS I AM GOING TO WALK THE HELL OUT OF HERE" . EXPLAINED TO PT THAT WHEN THE PHYSICAN ASKED HIM IF HE WANTED TO GO HOME, THE PT STATED THAT HE WAS NOT READY TO GO HOME. EXPLAINED TO MD THE CURRENT SITUATION AND PER MD HE CAN SIGN OUT AMA. EXPLAINED TO THE PT THAT IF HE WISHED TO LEAVE HE CAN SIGN OUT AMA. EXPLAINED TO THE PT THAT THERE WAS NO NEED TO BE ANGRY OR UPSET AND THAT IF THEIR WAS A PROBLEM TO TELL ME SO WE CAN ADDRESS IT. PER PT HE WAS NOT GOING TO SIGN OUT AMA AND THAT HE WAS GOING TO STAY BECAUSE HE KNOWS THAT IS WHAT IS BEST AND APOLOGIZED FOR HIS BEHAVIOR.
[2019-04-16 12:16] VITALS: BP 118/79
--- NOTE | 2019-04-16 12:30 | NUR ---
PT EATING LUNCH WITH AT BEDSIDE. STATES HE IS FEELING BETTER NOW THAT SHE IS HERE
[2019-04-16 15:40] VITALS: BP 118/84
--- NOTE | 2019-04-16 19:05 | NUR ---
REPORT FROM BRYON ADAMS. PT SITTING UP IN BED WATCHING TV. PT ALERT AND ORIENTED. NO APPARENT DISTRESS NOTED. DISCUSSED POC. PT VERBALIZED UNDERSTANDING. COMMERCIAL SALES REPRESENTATIVE IN PLACE. IV FLUIDS INFUSING WITHOUT DIFFICULTY. PT DENIES ANY CURRENT WANTS OR NEEDS. CALL LIGHT WITHIN REACH. WILL CONTINUE TO MONITOR.
[2019-04-16 19:30] VITALS: BP 109/74
--- NOTE | 2019-04-16 22:16 | NUR ---
CALL RECEIVED FROM ED REPORT PT OFF TELEMTRY. UPON ENTERING ROOM PT FOUND SITTING IN CHAIR AT BEDSIDE. FALAFEL CART COOK REMOVED AND ON FLOOR WITH PT GOWN. PT STATES HE NEEDS TO USE BATHROOM. PT EDUCATED ON IMPORTANCE OF FALAFEL CART COOK, SAFETY, AND CALL LIGHT SYSTEM. SENIOR SCHEDULER REMAINED IN ROOM. ASSISTED PT BACK TO BED. CALL LIGHT WITHIN REACH. WILL CONTINUE TO MONITOR.
[2019-04-17 00:15] VITALS: BP 116/78
--- NOTE | 2019-04-17 02:48 | NUR ---
PT RESTING IN BED WITH EYES CLOSED. NO APPARENT DISTRESS NOTED. CALL LIGHT WITHIN REACH. WILL CONTINUE TO MONITOR.
[2019-04-17 04:23] VITALS: BP 103/65
[2019-04-17 05:40] LABS: CREATININE 2.1 mg/dL (0.7-1.3); POTASSIUM 3.5 mmol/l (3.5-5.1)
--- NOTE | 2019-04-17 07:00 | NUR ---
SHIFT CHANGE REPORT, PT AWAKE AND ALERT SITTING UP IN CHAIR, DENIES DISCOMFORT BUT STATES HE WANTS TO GO HOME TODAY, TELE MONITOR IN PLACE, CALL RANDLE IN REACH.
[2019-04-17 07:47] VITALS: BP 100/78
--- NOTE | 2019-04-17 08:45 | NUR ---
PT REPORTS HE WANTS TO HAVE A SHOWER "NOW," ADVISED WILL BE ASSISTED SOON BREAKFAST IS FINISHED AND STAFF IS AVAILABLE TO ASSIST, HE EXCLAIMED "I DONT GIVE A DAMN ABOUT THE GIRLS AND I AINT WAITING BECAUSE IM STINK FOR DAYS AND IM TAKING A SHOWER NOW." HE PROCEDED TO REMOVE HIS TELE MONITOR AND WALKED TO SHOWER BY SELF. I ADVISED HIM ABOUT FALL PRECAUTION AND HE SAID HE DOESNT NEED ANY HELP AND HE IS NOT GOING TO FALL. WILL CONTINUE TO MONITOR.
[2019-04-17] MEDS ORDERED: KLOR-CON M2020 MEQ PO (08:56)
[2019-04-17] MEDS ORDERED: ELIQUIS2.5 MG PO (08:56)
[2019-04-17 08:59] VITALS: BP 100/78
[2019-05-18] MEDS ORDERED: LEVOTHYROXIN25 MC1 PO (09:56)
[2019-05-18] MEDS ORDERED: FINASTERIDE5 MG PO (09:57)
[2019-05-18] MEDS ORDERED: BUMETANIDE1 MG PO (09:57)
[2019-05-18] MEDS ORDERED: CARVEDILOL6.25 MG PO (09:57)
[2019-05-18] MEDS ORDERED: ISOSORB MONO30 MG PO (09:58)
[2019-05-18] MEDS ORDERED: K-DUR/KLOR-CON20 MEQ PO (09:58)
[2019-05-18] MEDS ORDERED: LEVEMIR100 UNIT/M SC (09:58)
[2019-05-18] MEDS ORDERED: SYMBICORT1 AE1 IN (09:59)
[2019-05-18] MEDS ORDERED: ELIQUIS2.5 MG PO (10:00)
[2019-05-18] MEDS ORDERED: PRAVASTATIN40 MG PO (10:00)
[2019-05-18] MEDS ORDERED: PROTONIX40 M2 PO (10:00)
[2019-05-18] MEDS ORDERED: TAMSULOSIN HCL0.4 MG PO (10:01)
[2019-05-18] MEDS ORDERED: ALLOPURINOL100 MG PO (10:01)
[2019-05-18] MEDS ORDERED: CORDARONE/200 MG/TAB PO (10:02)
[2019-05-18] MEDS ORDERED: CLOPIDOGREL75 MG PO (10:02)
[2019-05-18] MEDS ORDERED: ESCITALOPRAM OX10 MG PO (10:03)
== END 2019-04-17 10:35 | disposition home health service (06) | DRG 683 ==
LOC: ED 11:14 → ED-I 15:22 → ED 15:51 → MS2 15:52
PROVIDERS: Family Medicine; Nurse Practitioner Family; ADMIT Internal Medicine; ATTEND Internal Medicine
DX: N17.9 Acute kidney failure, unspecified (principal); I13.0 Hypertensive heart and chronic kidney disease with heart failure and stage 1 through stage 4 chronic kidney disease, or unspecified chronic kidney disease; I50.22 Chronic systolic (congestive) heart failure; E87.6 Hypokalemia; N18.4 Chronic kidney disease, stage 4 (severe); E11.22 Type 2 diabetes mellitus with diabetic chronic kidney disease; E86.0 Dehydration; J43.9 Emphysema, unspecified; I45.10 Unspecified right bundle-branch block; I25.10 Atherosclerotic heart disease of native coronary artery without angina pectoris; I48.91 Unspecified atrial fibrillation; N40.0 Benign prostatic hyperplasia without lower urinary tract symptoms; I25.2 Old myocardial infarction; T50.2X5A Adverse effect of carbonic-anhydrase inhibitors, benzothiadiazides and other diuretics, initial encounter; T50.1X5A Adverse effect of loop [high-ceiling] diuretics, initial encounter; F17.200 Nicotine dependence, unspecified, uncomplicated; Z95.5 Presence of coronary angioplasty implant and graft; Z79.4 Long term (current) use of insulin; Z95.1 Presence of aortocoronary bypass graft; Z95.810 Presence of automatic (implantable) cardiac defibrillator
CPT/HCPCS: G0378; J3475

== ENCOUNTER 2019-05-03 09:20 | Inpatient (IN) | payer MEDICARE ==
[~2019-05-03] VITALS: Ht 188 cm; Wt 118.6 kg
[~2019-05-03 09:20] MED LIST changes: +ELIQUIS2.5 MG PO; +KLOR-CON M2020 MEQ PO; +LEXAPRO10 MG PO; +OXY1
--- NOTE | 2019-05-03 09:20 | NUR ---
PT ARRIVES VIA EMS WITH C/O INCREASED SWELLING SOB OVER THE LAST FEW WEEKS. PT BECOMES EXTREMELY ANXIOUS WHEN ASKED QUESTIONS AND YELLS AT STAFF. RESP EVEN AND UNLABORED. O2 DEPENDENT AT HOME. REMAINS ON O2@3LPM VIA NC
--- NOTE | 2019-05-03 10:12 | NUR ---
PT YELLING AT RT THAT HE DOESNT WANT ABG, CONSENTED TO ABG IN AC. PT CALMED AFTER INCIDENT. NO RESP DISTRESS.
[2019-05-03 10:18] LABS: HEMATOCRIT 30.7 % (39.0-50.0); IMMATURE GRANULOCYTES 4.2 % (0.0-5.0); MEAN CELL VOLUME 92.7 fL CALC (80.0-100.0); MEAN CORPUSCULAR HGB 30.2 pG CALC (26.0-32.0); MEAN CORPUSCULAR HGB CONC 32.6 g/L CALC (32.0-36.0); NEUT# 2.59 thou/uL (1.82-7.42); RED BLOOD COUNT 3.31 mill/uL (4.70-6.10); RED CELL DISTRI WIDTH 21.2 % (11.5-15.5)
--- NOTE | 2019-05-03 11:00 | NUR ---
PT RESTING ON STRETCHER WITH CALL LIGHT WITHIN REACH. PT IS ASKING FOR COFFEE AND COFFEE WAS TORRI
[2019-05-03 11:06] LABS: INTERNATIONAL NORMALIZED RATIO 1.2 RATIO (0.7-1.3)
[2019-05-03 11:42] LABS: ALBUMIN 3.6 g/dL (3.2-5.0); CREATININE 2.3 mg/dL (0.7-1.3); POTASSIUM 3.2 mmol/l (3.5-5.1); TOTAL PROTEIN 6.9 g/dL (6.3-8.2)
--- NOTE | 2019-05-03 12:10 | NUR ---
PT RECONNECTED TO EQUIPMENT. HE STATES HAVING A PAIN OF 5/10 AFTER MORPHINE ADMINISTRATION
--- NOTE | 2019-05-03 13:10 | NUR ---
PT STATES 8EING HUNGRY AND DEMANDED FOOD. MD WAS NOTIFIED AND FOOD WAS GIVIN
--- NOTE | 2019-05-03 13:31 | NUR ---
ACCOMPANIED PT TO CT FOR CONTINUED [id number] SINCE LEVOPHED INFUSION IS 8EING ADMINISTERED
--- NOTE | 2019-05-03 14:06 | NUR ---
PT RESTING ON STRETCHER AND WANTED INFORMATION A8OUT PLAN OF CARE. INFO TORRI AND HE [id number] UNDERSTANDING
--- NOTE | 2019-05-03 14:40 | NUR ---
WITH PT PERMISSION AN UPDATE WAS GIVIN TO BERENICE ON PT STATUS
--- NOTE | 2019-05-03 15:30 | NUR ---
PT RESTING ON STRETCHER AND ASKED FOR SOCKS. PT DENIES ANY OTHER NEEDS
--- NOTE | 2019-05-03 16:50 | NUR ---
GAVE REPORT TO TERRELL
--- NOTE | 2019-05-03 17:10 | NUR ---
TRANSPORTED PT TO MED SURG STA8LE AND IN NO DISTRESS VIA STRETCHER. CARE ASSUMED JOHN Admission Note Report Given to: Transported by: Wheelchair X Stretcher Transported with: X Nurse Transporter X Patent IV X O2 X Solar Process Engineer Location: ICU X MS2
[2019-05-03 17:39] VITALS: BP 120/63
--- NOTE | 2019-05-03 18:32 | NUR ---
BEDSIDE REPORT RECEIVED FROM JULIA FROM ED, PT ARRIVED ON UNIT @ 1721 TRANSPORTED VIA STRETCHER BY ED STAFF AND TRANSFERRED TO BED. OT AT 2L VIA NC IN PLACE, SOB WITH SHALLOW BREATHING, ORIENTED TO ROOM AND CALL RANDLE. TELE MONITOR IN PLACE, PT DENIED PAIN, SETTLED IN BED, PITTING EDEMA TO LOWER EXT OBSERVED, WILL CONTINUE TO MONITOR.
[2019-05-03 19:16] VITALS: BP 98/68
[2019-05-04 00:17] VITALS: BP 93/70
[2019-05-04 04:09] VITALS: BP 115/72
[2019-05-04 06:53] LABS: HEMATOCRIT 31.3 % (39.0-50.0); HEMOGLOBIN 10.2 g/dl (14.0-18.0); MEAN CELL VOLUME 93.4 fL CALC (80.0-100.0); MEAN CORPUSCULAR HGB 30.4 pG CALC (26.0-32.0); MEAN CORPUSCULAR HGB CONC 32.6 g/L CALC (32.0-36.0); RED BLOOD COUNT 3.35 mill/uL (4.70-6.10); RED CELL DISTRI WIDTH 21.1 % (11.5-15.5)
[2019-05-04 07:12] LABS: CREATININE 2.6 mg/dL (0.7-1.3); POTASSIUM 3.7 mmol/l (3.5-5.1)
--- NOTE | 2019-05-04 09:00 | NUR ---
PT SITTING UP ON COUCH IN ROOM, DID AM CARE DECLINED SHOWER OFFERED BY TELEVISION SPECIALIST, AM ASSESSMENT COMPLETED; SEE INTERVNETIONS, SKIN WARM AND DRY NO BREAKDOEN NOTED, PT REQUESTING SOME KIND OF OINTMENT FOR HIS "SCALY SKIN" PT INFORMED WE WILL NOTIFY MD ON AM ROUNDS. OFFERS NO NEW COMPLAINTS, CALL RANDLE WITHIN REACH
--- NOTE | 2019-05-04 10:20 | NUR ---
PT REMAINS SITTING UP ON COUCH, NO SOB OR DISTRESS NTOED, INTO SEE PATIENT AND POC DISCUSSED, CALL RANDLE WITHIN REACH.
--- NOTE | 2019-05-04 11:02 | NUR ---
AWARE OF ALLERGY, VERBAL ORDER TO D/C VIBRCASSIE ALVAREZ IN PHARMACY NOTIFIED.
[2019-05-04 12:00] VITALS: BP 122/50
--- NOTE | 2019-05-04 14:45 | NUR ---
REPORT RECEIVED FROM DEANGELO VILLAFANA;PT OOB RESTING ON COUCH;INTRODUCED SELF TO PT AND POC DISCUSSED;RESPIRATIONS EVEN AND UNLABORED ON O2 @ 2L VIA NC;PT DENIES ANY CURRENT PAIN OR NEEDS;INSTRUCTED TO CALL FOR ASSISTANCE IF NEEDED;FALL PRECAUTIONS IN PLACE WITH CALL LIGHT IN REACH;WILL CONTINUE TO MONITOR
[2019-05-04 15:24] VITALS: BP 87/53
--- NOTE | 2019-05-04 16:10 | NUR ---
PT OOB RESTING ON COUCH;RESPIRATIONS REMAIN EVEN AND UNLABORED ON O2 @ 2L VIA NC;PT DENIES ANY CURRENT PAIN OR DISCOMFORTS;TELE MONITORING IN PLACE;IV SITE PATENT;ASSESSMENT REMAINS UNCHANGED AT THIS TIME;ENCOURAGED TO CALL FOR ASSISTANCE IF NEEDED;FALL PRECAUTIONS IN PLACE WITH CALL LIGHT IN REACH;WILL CONTINUE TO MONITOR
[2019-05-04 17:04] VITALS: BP 134/81
--- NOTE | 2019-05-04 17:09 | NUR ---
PT NAUSEOUS, VOMITING SMALL AMOUNT OF YELLOW EMESIS.EBENEZER MANNING NOTIFIED AND NEW ORDERS RECEIVED.
--- NOTE | 2019-05-04 17:29 | NUR ---
PT MEDICATED WITH PRN ZOFRAN 4MG IVP FOR NAUSEA AT THIS TIME,WILL CONTINUE TO MONITOR
[2019-05-04 18:45] VITALS: BP 112/76
--- NOTE | 2019-05-04 19:08 | NUR ---
REPORT RECEIVED FROM BRYAN ODELL. PT RESTING IN BED, NO S/S OF DISTRESS AT THIS TIME. SAFETY PRECAUTIONS IN PLACE. WILL CONTINUE TO MONITOR.
--- NOTE | 2019-05-04 20:36 | NUR ---
PT RESTING IN BED ALERT AND ORIENTED. FAMILY AT BEDSIDE. RESPIRATIONS EVEN AND UNLABORED ON O2 @ 2L VIA NC. WHEEZES NOTED THROUGH OUT LUNGS. PEDAL PULSES WEAK. 2+ EDEMA NOTED TO BLE. PT DENIES ANY PAIN OR DISCOMFORT. SAFETY PRECAUTIONS IN PLACE. WILL CONTINUE TO MONITOR.
[2019-05-05] VITALS (7 sets, daily range): BP systolic 93–115; BP diastolic 59–78
--- NOTE | 2019-05-05 00:54 | NUR ---
PT RESTING IN BED. TELE IN PLACE. NO S/S OF DISTRESS AT THIS TIME. WILL CONTINUE TO MONITOR.
--- NOTE | 2019-05-05 03:50 | NUR ---
PT RESTING IN BED RESPIRATIONS EVEN AND UNLABORED ON O2 @ 2L VIA NC. SAFETY PRECAUTIONS IN PLACE. WILL CONTINUE TO MONITOR.
--- NOTE | 2019-05-05 07:20 | NUR ---
REPORT RECEIVED FROM LOUISRN;PT APPEARS TO BE SLEEPING IN SEMI FOWLERS POSITION;NO S/S OF DISTRESS NOTED;RESPIRATIONS APPEAR EVEN AND UNLABORED,SHALLOW ON O2 @ 2L VIA NC;TELE MONITORING IN PLACE;ACCUCHECK 147, NO COVERAGE NEEDED;ALL SAFETY PRECAUTIONS IN PLACE WITH BED IN THE LOWEST POSITION AND CALL LIGHT IN REACH;WILL CONTINUE TO MONITOR
[2019-05-05 08:06] LABS: CREATININE 3.1 mg/dL (0.7-1.3); MAGNESIUM 2.1 mg/dL (1.6-2.3); POTASSIUM 3.2 mmol/l (3.5-5.1)
--- NOTE | 2019-05-05 08:55 | NUR ---
PT RESTING IN SEMI FOWLERS POSITION,A&O X3;VS OBTAINED AND ASSESSMENT COMPLETED;PT DENIES ANY CURRENT PAIN OR DISCOMFORTS,PAIN SCALE AND REPORTING EDUCATED;RESPIRATIONS EVEN AND UNLABORED,SHALLOW ON O2 @ 2L VIA NC;NON-PRODUCTIVE COUGH AT THIS;ABDOMEN DISTENDED/SOFT ON PALPATION AND ACTIVE IN ALL 4 QUADRANTS;DOPPLERED PEDAL PULSES WITH +3 EDEMA NOTED,ENCOURAGED ELEVATION;EMS #20G TO LAC FLUSHED AND PATENT,SITE APPEARS HEALTHY;PT EDUCATED ON IV SITE EXPIRATION AND PT REFUSES SITE CHANGE AT THIS TIME;TELE MONITORING IN PLACE;PT DENIES ANY ADDITIONAL NEEDS AND IS ENCOURAGED TO CALL FOR ASSISTANCE IF NEEDED;CALL LIGHT IN REACH;WILL CONTINUE TO MONITOR
--- NOTE | 2019-05-05 09:55 | NUR ---
AT BEDSIDE DISCUSSING POC.
--- NOTE | 2019-05-05 11:30 | NUR ---
PT RESTING AT BEDSIDE,A&O X3;RESPIRATIONS REMAIN EVEN AND UNLABORED,SHALLOW ON O2 @ 2L VIA NC;PT DENIES ANY CURRENT PAIN OR NEEDS;TELE MONITORING IN PLACE;IV SITE PATENT;PT DENIES ANY ADDITIONAL NEEDS AT THIS TIME AND IS ENCOURAGED TO CALL FOR ASSISTANCE IF NEEDED;CALL LIGHT IN REACH;WILL CONTINUE TO MONITOR
--- NOTE | 2019-05-05 14:34 | NUR ---
PT REPORTS LEFT SIDED CHEST PAIN RATING 10/10 ON THE AIN SCALE;VS OBTAINED BP 97/69 HR 99.LDONANRP NOTIFIED.STAT EKG AND TROP OBTAINED.
--- NOTE | 2019-05-05 14:43 | NUR ---
LAB AT BEDSIDE
--- NOTE | 2019-05-05 14:43 | NUR ---
RT AT BEDSIDE OBTAINING EKG.
--- NOTE | 2019-05-05 14:57 | NUR ---
PT MEDICATED WITH PRN MORPHINE 2MG IVP FOR LEFT SIDED CHEST PAIN RATING 6/10 ON THE PAIN SCALE,WILL CONTINUE TO MONITOR FOR EFFECTIVENESS
--- NOTE | 2019-05-05 17:00 | NUR ---
PT RESTING IN SEMI FOWLERS POSITION;RESPIRATIONS EVEN AND UNLABORED ON O2 @ 2L;PT DENIES ANY CURRENT PAIN OR NEEDS;TELE MONITORING IN PLACE;IV SITE PATENT;PT ENCOURAGED TO CALL FOR ASSISTANCE IF NEEDED;CALL LIGHT IN REACH;WILL CONTINUE TO MONITOR
[2019-05-06] VITALS (7 sets, daily range): BP systolic 100–118; BP diastolic 60–73
[2019-05-06 07:47] LABS: HEMATOCRIT 28.1 % (39.0-50.0); MEAN CELL VOLUME 94.9 fL CALC (80.0-100.0); MEAN CORPUSCULAR HGB 30.4 pG CALC (26.0-32.0); RED BLOOD COUNT 2.96 mill/uL (4.70-6.10); RED CELL DISTRI WIDTH 21.2 % (11.5-15.5)
--- NOTE | 2019-05-06 08:15 | NUR ---
Patient refused labs this morning. Male home performance laborer reported to me" patient was rude to him yesterday and request a pretty female for blood draw", and someone will be coming at 0700am to draw his blood.
[2019-05-06 08:17] LABS: ALBUMIN 3.1 g/dL (3.2-5.0); CREATININE 2.8 mg/dL (0.7-1.3); POTASSIUM 3.6 mmol/l (3.5-5.1)
--- NOTE | 2019-05-06 08:30 | NUR ---
PATIENT A/OX4, NO S/S RESP DISTRESS, PATIENT ON O2 VIA NC, ASSISTED PATIENT TO RESTROOM, PATIENT HAS UNSTEADY GAIT, PATIENT VOIDED, PATIENT HEART RHYTHM IS NORMAL SINUS WITH PVC, WILL CONTINUE TO MONITOR PATIENT, CALL LIGHT WITHIN REACH
[2019-05-06 09:22] LABS: MANUAL DIFFERENTIAL YES
[2019-05-06 09:28] LABS: PLATELET COUNT 43 thou/uL (130-400)
--- NOTE | 2019-05-06 12:30 | NUR ---
PATIENT RESTING IN BED, NO S/S RESP DISTRESS, PATIENT ON O2 VIA NC. PATIENT VOIED 300ML OF URINE IN URINAL, CALL LIGHT WITHIN REACH
--- NOTE | 2019-05-06 16:20 | NUR ---
PATIENT RESTING IN BED, NO S/S OF PAIN, PRN PAIN MED WAS EFFECTIVE PATIENT HAD C/O PAIN IN RIGHT SHOULDER, PATIENT S/S RESP DISTRESS, PATIENT ON O2 VIA NC, CALL LIGHT WITHIN REACH, WILL CONTINUE TO MONITOR PATIENT
--- NOTE | 2019-05-06 20:00 | NUR ---
PT RESTING IN BED, NO SIGNS OF DISTRESS NOTED, RESP EVEN AND UNLABORED. PT ALERT AND ORIENTED X3, NOTED EDEMA, DRY, SCALEY SKIN TO BLE, DISCUSSED POC, ASSESSMENT COMPLETED,ASSISTED PT TO BATHROOM, INSTRUCTED TO PULL RED CORD FOR ASSISTANCE. CONTINUE TO MONITOR.
--- NOTE | 2019-05-06 20:45 | NUR ---
PT MEDICATED WITH LEVEMIR, CALL LIGHT IN REACH, PT REQUESTS THAT OVERHEAD LIGHT REMAIN ON. CONTINUE TO MONITOR.
--- NOTE | 2019-05-07 | NUR ---
PT RESTING IN BED WATCHING TV, NO SIGNS OF DISTRESS NOTED, RESP EVEN AND UNLABORED. CALL LIGHT IN REACH,CONTINUE TO MONITOR.
[2019-05-07 03:25] VITALS: BP 116/75
--- NOTE | 2019-05-07 03:33 | NUR ---
PT C/O GENERALIZED PAIN, MEDICATED WITH TYLENOL. CALL LIGHT IN REACH,CONTINUE TO MONITOR.
--- NOTE | 2019-05-07 06:00 | NUR ---
PT MEDICATED WITH SYNTHROID, PT VOICES NO NEEDS OR COMPLAINTS AT THIS TIME, CALL LIGHT IN REACH,CONTINUE TO MONITOR.
--- NOTE | 2019-05-07 07:30 | NUR ---
PATIENT A/OX4, NO C/O PAIN, NO S/S RESP DISTRESS, PATIENT ON O2 VIA NC, PATIENT HEART RHYTHM IN AFIB/PACED, PATIENT BLOOD GLUCOSE 124, WILL CONTINUE TO MONITOR PATIENT, CALL LIGHT WITH REACH
[2019-05-07 07:56] LABS: HEMATOCRIT 26.3 % (39.0-50.0); HEMOGLOBIN 8.4 g/dl (14.0-18.0); IMMATURE GRANULOCYTES 5.9 % (0.0-5.0); MEAN CELL VOLUME 93.9 fL CALC (80.0-100.0); MEAN CORPUSCULAR HGB CONC 31.9 g/dL CAL (32.0-36.0); NEUT# 2.09 thou/uL (1.82-7.42); RED BLOOD COUNT 2.8 mill/uL (4.70-6.10); RED CELL DISTRI WIDTH 21.2 % (11.5-15.5)
[2019-05-07 08:19] LABS: ALBUMIN 2.9 g/dL (3.2-5.0); BILIRUBIN, TOTAL 0.7 mg/dL (0.0-1.4); CREATININE 2.5 mg/dL (0.7-1.3); POTASSIUM 3.1 mmol/l (3.5-5.1); TOTAL PROTEIN 5.6 g/dL (6.3-8.2)
[2019-05-07 08:20] VITALS: BP 129/85
[2019-05-07] MEDS ORDERED: KLOR-CON M2020 MEQ PO (10:23)
[2019-05-07 10:56] VITALS: BP 97/78
--- NOTE | 2019-05-07 13:12 | NUR ---
PATIENT A/OX4, NO C/O PAIN, NO S/S RESP DISTRESS, PATIENT DISCHARGED TO HOME WITH HOME HEALTH, EDUCATED THE PATIENT ABOUT DISCHARGED INSTRUCTIONS PATIENT STATED HE UNDERSTOOD TEACH, HANDOUT GIVEN TO PATIENT ABOUT DC INSTRUCTIONS, REMOVED IV, CALLED TAXI PER PATIENT REQUEST, STAFF ASSISTED PATIENT VIA WHEELCHAIR OFF FLOOR
[2019-05-18] MEDS ORDERED: LEVOTHYROXIN25 MC1 PO (09:56)
[2019-05-18] MEDS ORDERED: FINASTERIDE5 MG PO (09:57)
[2019-05-18] MEDS ORDERED: CARVEDILOL6.25 MG PO (09:57)
[2019-05-18] MEDS ORDERED: BUMETANIDE1 MG PO (09:57)
[2019-05-18] MEDS ORDERED: K-DUR/KLOR-CON20 MEQ PO (09:58)
[2019-05-18] MEDS ORDERED: ISOSORB MONO30 MG PO (09:58)
[2019-05-18] MEDS ORDERED: LEVEMIR100 UNIT/M SC (09:58)
[2019-05-18] MEDS ORDERED: SYMBICORT1 AE1 IN (09:59)
[2019-05-18] MEDS ORDERED: PRAVASTATIN40 MG PO (10:00)
[2019-05-18] MEDS ORDERED: PROTONIX40 M2 PO (10:00)
[2019-05-18] MEDS ORDERED: ELIQUIS2.5 MG PO (10:00)
[2019-05-18] MEDS ORDERED: ALLOPURINOL100 MG PO (10:01)
[2019-05-18] MEDS ORDERED: TAMSULOSIN HCL0.4 MG PO (10:01)
[2019-05-18] MEDS ORDERED: CORDARONE/200 MG/TAB PO (10:02)
[2019-05-18] MEDS ORDERED: CLOPIDOGREL75 MG PO (10:02)
[2019-05-18] MEDS ORDERED: ESCITALOPRAM OX10 MG PO (10:03)
== END 2019-05-07 13:12 | disposition home health service (06) | DRG 291 ==
LOC: ED 09:20 → ED-I 12:45 → ED 13:12 → ED-I 13:13 → MS2 13:13
PROVIDERS: ADMIT Internal Medicine; ATTEND Internal Medicine
DX: I13.0 Hypertensive heart and chronic kidney disease with heart failure and stage 1 through stage 4 chronic kidney disease, or unspecified chronic kidney disease (principal); I50.23 Acute on chronic systolic (congestive) heart failure; J96.11 Chronic respiratory failure with hypoxia; N17.9 Acute kidney failure, unspecified; E11.22 Type 2 diabetes mellitus with diabetic chronic kidney disease; N18.3 Chronic kidney disease, stage 3 (moderate); J43.9 Emphysema, unspecified; I25.10 Atherosclerotic heart disease of native coronary artery without angina pectoris; I48.91 Unspecified atrial fibrillation; D69.6 Thrombocytopenia, unspecified; I42.9 Cardiomyopathy, unspecified; D63.1 Anemia in chronic kidney disease; F17.200 Nicotine dependence, unspecified, uncomplicated; N40.0 Benign prostatic hyperplasia without lower urinary tract symptoms; M10.9 Gout, unspecified; E03.9 Hypothyroidism, unspecified; E87.6 Hypokalemia; I25.2 Old myocardial infarction; Z79.4 Long term (current) use of insulin; Z95.5 Presence of coronary angioplasty implant and graft; Z95.810 Presence of automatic (implantable) cardiac defibrillator; Z95.1 Presence of aortocoronary bypass graft; Z79.01 Long term (current) use of anticoagulants; Z88.1 Allergy status to other antibiotic agents
CPT/HCPCS: G0378; J1956

== ENCOUNTER 2019-05-19 | Inpatient (IN) | payer MEDICARE ==
[2019-05-18] VITALS (11 sets, daily range): BP systolic 84–127; BP diastolic 50–80
--- NOTE | 2019-05-18 01:16 | NUR ---
PATIENT TO ROOM 9 VIA EMS STRETCHER. PATIENT C/O FLANK PAIN AND COUGH SINCE HIS LAST ADMISSION 2 WEEKS AGO. STATES HE HAS HAD NO FOLLOW UP. PATIENT PLACED ON O2 VIA NC. STATES HE IS 2L AT ALL TIMES. TRIAGE COMPLETED FROM MEDICAL RECORD BECAUSE PATIENT WOULD NOT ANSWER QUESTIONS UNLESS A DRINK WAS PROVIDED. INFORMED PATIENT THAT IF HE WAS HAVING N/V THAT PO INTAKE IS DISCOURAGED. UNDRESSED INTO A GOWN. PLACED ON MONITOR. AWAITING MD PIERRE.
--- NOTE | 2019-05-18 01:52 | NUR ---
UNABLE TO OBTAIN MEDICATION RECORD. PATIENT UNABLE TO NAME HIS MEDS. STATES "JUST LOOK IT UP" CONSULT PLACED TO PHARMACY
[2019-05-18 02:05] LABS: HEMATOCRIT 27.6 % (39.0-50.0); MEAN CELL VOLUME 94.5 fL CALC (80.0-100.0); MEAN CORPUSCULAR HGB 30.8 pG CALC (26.0-32.0); MEAN CORPUSCULAR HGB CONC 32.6 g/dL CAL (32.0-36.0); RED BLOOD COUNT 2.92 mill/uL (4.70-6.10); RED CELL DISTRI WIDTH 22.7 % (11.5-15.5)
[2019-05-18 02:20] LABS: IMMATURE GRANULOCYTES 9.6 % (0.0-5.0); NEUT# 2.07 thou/uL (1.82-7.42)
[2019-05-18 02:22] LABS: ALBUMIN 3.4 g/dL (3.2-5.0); CREATININE 2.7 mg/dL (0.7-1.3); POTASSIUM 2.8 mmol/l (3.5-5.1); TOTAL PROTEIN 6.7 g/dL (6.3-8.2)
[2019-05-18 02:24] LABS: BILIRUBIN, TOTAL 1.9 mg/dL (0.0-1.4)
--- NOTE | 2019-05-18 02:45 | NUR ---
PT RETURNED FROM RADIOLOGY VIA STRETCHER. PT VERY HATEFUL. PT STATES HE CAN'T STAY IN BED...CLIMBED OUT OF BED AND PULLED OFF EQUIP. PT PULLED OFF O2. WHEELCHAIR BROUGHT INTO ROOM AND PT PLACED NEAR O2 OUTLET. REFUSED TO ALLOW BP/STORE DELI MANAGER. PT OFFERED TO SIGN AMA...PT SAID HE WASN'T LEAVING. PT STATES THAT WE AREN'T DOING ANYTHING FOR HIM.
--- NOTE | 2019-05-18 03:57 | NUR ---
PT ASSISTED BACK TO BED. BLANKETS PROVIDED.
--- NOTE | 2019-05-18 05:15 | NUR ---
DR ALVES TO BEDSIDE TO DISCUSS ADMISSION
--- NOTE | 2019-05-18 05:30 | NUR ---
PT SLEEPING...AGAIN WITHOUT NC APPLIED. SAT IN 80'S. PT TOLD THAT WE MUST GET UPDATED VS. COOPERATIVE BRIEFLY.
--- NOTE | 2019-05-18 05:46 | NUR ---
ATTEMPTED TO CALL REPORT. NURSE WILL CALL BACK.
--- NOTE | 2019-05-18 06:20 | NUR ---
PT TO FLOOR VIA WHEELCHAIR AND O2. PT JUST HAD SWEATPANTS ON. NO OTHER BELONGINGS. FOOTIES APPLIED FOR TRANSPORT. UPON ARRIVAL PT AMBULATORY WITH ASSIST TO SCALE AND THEN TO BED.
--- NOTE | 2019-05-18 06:22 | NUR ---
REPORT TO LAKHWINDER.
--- NOTE | 2019-05-18 07:33 | NUR ---
PATIENT ARRIVED TO FLOOR AT 0631, PATIENT TRANSPORTED VIA WHEELCHAIR HOOKED TO O2 @ 2LPM VIA NC, SHALLOW, BREATHING, NOTED TO HAVE EXERTIONAL DYSPNEA, PATIENT SETTLED IN BED, CALL LIGHT AT REACH.
--- NOTE | 2019-05-18 09:00 | NUR ---
PT SEEN RESTING IN THE BED, WAKES TO VOICE STIMULATION. LUNGS WITH CRACKLES LEFT BASE, 2 LPM NC. ABDOMEN TENDER TO RLQ.
[2019-05-18 09:37] LABS: URINE BILIRUBIN - DIPSTICK NEGATIVE (NEGATIVE); URINE BLOOD DIPSTICK NEGATIVE (NEGATIVE); URINE COLOR YELLOW; URINE GLUCOSE - DIPSTICK NEGATIVE (NEGATIVE); URINE KETONE NEGATIVE (NEGATIVE); URINE LEUK ESTERASE NEGATIVE (NEGATIVE); URINE NITRITE - DIPSTICK NEGATIVE (Negative); URINE PROTEIN - DIPSTICK TRACE mg/dL (NEG-TRACE); URINE SPECIFIC GRAVITY 1.015
--- NOTE | 2019-05-18 10:03 | NUR ---
MED REC ENTERED PER CLAIM HISTORY PER EDWINA'S REQUEST. PT IS UNABLE TO VERIFY MEDS
--- NOTE | 2019-05-18 12:00 | NUR ---
PT HAS BEEN ABLE TO DRINK 3 GLASSES OF GATORADE WITHOUT NAUSEA AND VOMITING. TO CT, THEN TAKEN TO ICU, REPORT PROVIDED TO TRUNG. PT WITH INCREASING ABDOMINAL DISCOMFORT AND DECREASING PLATELETS WARRANT TRANSFER.
[2019-05-18 13:15] LABS: ACT PARTIAL THROMBO TIME 32.5 SECONDS (20.0-32.5); D-DIMER 0.95 mg/L (0.19-0.60); INTERNATIONAL NORMALIZED RATIO 1.2 RATIO (0.7-1.3); PROTHROMBIN TIME 12.3 SECONDS (9.0-12.5)
--- NOTE | 2019-05-18 14:00 | NUR ---
PT TRANSFERRED FROM [facility] TO ICU7. BEDSIDE REPORT RECIEVED FROM DEANGELO HUERTA. PT VERBALLY INAPPROPRIATE WHEN TRANSFERRED INTO BED. PT MAKING COMMENTS HOW HE WANTS TO BITE RNS FINGER AND CHEW ON IT. WHEN ASKING PATIENT TO TURN TO CLEAN UP BM PT BECOMES ANGRY AND YELLS. PT AMBULATED TO BEDSIDE COMMODE AND REFUSED VITALS AND MONITOR AT THIS TIME. EDUCATED PATIENT ON ICU STATUS AND FALL RISK STATUS. WILL CONTINUE TO MONITOR.
--- NOTE | 2019-05-18 15:40 | NUR ---
PT COMPLAINING THAT IV K IS BURNING. K RATED SLOWED DOWN TO 25ML/HR. ENVELOPE SEALER OPERATOR EDWINA AND PHARMACY CASSIE NOTIFIED. PIGGY BACK NORMAL SALINE ADDED. WILL CONTINUE TO MONITOR
--- NOTE | 2019-05-18 16:40 | NUR ---
PT RESTING IN BED WITH EYES CLOSED. NO DISTRESS NOTED. PT STATES K IV IS FEELING BETTER AFTER SLOWING DOWN THE MEDICATION. WILL CONTINUE TO MONITOR
--- NOTE | 2019-05-18 17:12 | NUR ---
SPOKE TO APOLONIA BLAND ABOUT PT PLATELET COUNT. NO ORDER TO TRANSFUSE. PER APOLONIA BLAND WILL MONITOR BLOOD WORK AT THIS TIME. NOTIFIED APOLONIA BLAND PT HAS HAS MULTIPLE PVS AND GOES INTO BIGEMINY AND TRIGEMINY. WILL CONTINUE TO MONITOR
--- NOTE | 2019-05-18 18:12 | NUR ---
PT RESTING IN BED WITH EYES CLOSED. NO DISTRESS NOTED. REPORT TO BE GIVEN TO NIGHT RN
--- NOTE | 2019-05-18 19:45 | NUR ---
RESTING IN BED WITH EYES CLOSED. OPENS EYES TO NAME CALLED. ORIENTED X3. RESP SHALLOW, NON-LABORED. DIMINISHED BREATH SOUNDS THROUGHOUT LUNG HENSON. O2 ON AT 2 L NC. O2 SAT 97% SHIFT ASSESSMENT COMPLETED. VSS. DISCUSSED PLAN OF CARE. DENIES NEEDS AT THIS TIME. CALL RANDLE AND URINAL IN REACH. GENERATION TECHNOLOGIST SHOWS, PACED RHYTHM WITH UNDERLYING AFIB FREQ PVC'S.
--- NOTE | 2019-05-18 22:10 | NUR ---
WATCHING TV. NO COMPLAINTS VOICED. VSS.
[2019-05-18 23:08] LABS: CREATININE 3.7 mg/dL (0.7-1.3); POTASSIUM 2.7 mmol/l (3.5-5.1)
[2019-05-19] VITALS (11 sets, daily range): BP systolic 91–115; BP diastolic 56–76
[~2019-05-19] MED LIST changes: +CLOPIDOGREL75 MG PO; +ESCITALOPRAM OX10 MG PO; +K-DUR/KLOR-CON20 MEQ PO; +TAMSULOSIN HCL0.4 MG PO
--- NOTE | 2019-05-19 00:10 | NUR ---
SLEEPING SOUNDLY. VSS. RESP NON-LABORED.
--- NOTE | 2019-05-19 02:05 | NUR ---
AWAKE ON ROUNDS, WATCHING TV. C/O BEING THIRSTY, GIVEN FEW ICE CHIPS.
--- NOTE | 2019-05-19 04:10 | NUR ---
SLEEPS UNLESS DISTURBED FOR NURING CARE. VSS. IV INFUSIN WITHOUT INCIDENT.
--- NOTE | 2019-05-19 05:45 | NUR ---
K RIDERS COMPLETED. ATTEMPTS TO DRAW BLOOD FOR AM LAB WORK UNSUCCESSFUL. CALL TO LAB FOR DANCER OR CHOREOGRAPHER TO DRAW.
--- NOTE | 2019-05-19 06:20 | NUR ---
UP TO BSC, VOIDED WITH MODERATE LIQUIDY STOOL. RETURNED TO BED. IV SITE HEALTHY IN LAC.
--- NOTE | 2019-05-19 07:16 | NUR ---
PT FRIENDLY/COOPERATIVE/JOKING WITH STAFF AT THIS TIME. REQUESTING COFFEE, STARTED A FRESH POT OF DECAF. PT DENIES CHEST PAIN; C/O INTERMIT RLQ ABD PAIN. WHEN ASKED PT TO POINT TO WHERE HIS CHEST PAIN IS, PT POINTS TO RLQ ABD. PT EXERTIONAL SOB WHEN GETTING BACK IN BED AFTER BM. PT STATES HIS & HIM BOTH CAME INTO HOSPITAL ON SAME DAY FOR CP, WAS DC YESTERDAY. PT WANTS TO BE DC TODAY. PT LIVES @HOME WITH .
--- NOTE | 2019-05-19 07:52 | NUR ---
PT SITTING UP IN BED, EATING BREAKFAST.
[2019-05-19 08:03] LABS: HEMATOCRIT 28.6 % (39.0-50.0); HEMOGLOBIN 9.2 g/dl (14.0-18.0); MEAN CELL VOLUME 97.6 fL CALC (80.0-100.0); MEAN CORPUSCULAR HGB 31.4 pG CALC (26.0-32.0); MEAN CORPUSCULAR HGB CONC 32.2 g/dL CAL (32.0-36.0); NEUT# 1.95 thou/uL (1.82-7.42); RED BLOOD COUNT 2.93 mill/uL (4.70-6.10); RED CELL DISTRI WIDTH 23.6 % (11.5-15.5)
[2019-05-19 08:08] LABS: IMMATURE GRANULOCYTES 11.8 % (0.0-5.0)
--- NOTE | 2019-05-19 08:08 | NUR ---
PTS O2 87% ON RA. PT REFUSES TO WEAR NC WHILE EATING. STATES HE WEARS 2L NC AT HOME "10/09", EXCEPT WHEN HE'S EATING.
[2019-05-19 08:22] LABS: CREATININE 3.7 mg/dL (0.7-1.3)
--- NOTE | 2019-05-19 08:24 | NUR ---
PT ON CALLBELL FOR URINAL. PT NOTIFIED IT WAS ON RAIL RIGHT NEXT TO HIM, PT STATED HE COULDNT REACH IT. ASKED PT TO PUT NC BACK ON.
[2019-05-19 08:29] LABS: POTASSIUM 3.5 mmol/l (3.5-5.1)
--- NOTE | 2019-05-19 08:52 | NUR ---
PT OVERHEAD CURSING IN ROOM. UPON ENTERING ROOM, PT STATED HE "SHIT THE BED". PT ASSISTED (MINIMAL) UP TO BSC. PARTIAL LINEN CHANGE.
--- NOTE | 2019-05-19 09:58 | NUR ---
CALLED FOR UPDATE, CALL TRANSFERED TO UNIT PORTABLE PHONE.
--- NOTE | 2019-05-19 10:47 | NUR ---
PT ASSISTED BACK TO BED AFTER SMALL SOFT BILLINGS BM.
--- NOTE | 2019-05-19 12:04 | NUR ---
PT ASLEEP, LAYING ON BACK. BREATHING EVEN/UNLABORED. NO S/S OF DISTRESS. WILL CONTINUE TO MONITOR.
--- NOTE | 2019-05-19 12:23 | NUR ---
PT C/O BEING COLD, GIVEN A WARM BLANKET.
--- NOTE | 2019-05-19 12:27 | NUR ---
PER DR NASH, PT CAN EAT. ORDER PLACED
--- NOTE | 2019-05-19 13:46 | NUR ---
RT @BEDSIDE FOR EKG
--- NOTE | 2019-05-19 14:20 | NUR ---
ORDERED LUNCH TRAY FROM [facility]
--- NOTE | 2019-05-19 15:55 | NUR ---
PT REMINDED HE HAS TO KEEP MONITORING EQUIPMENT ON; PT C/O BEEPING WHEN PT REMOVES MONITORS. PT STATES HE WANTS TO GO BACK TO SLEEP
--- NOTE | 2019-05-19 16:17 | NUR ---
PT UP TO BSC FOR BM BY SELF, PT REMINDED TO CALL FOR ASSISTANCE BEFORE GETTING OUT OF BED. PARTIAL LINEN CHANGE. PT GIVEN NEW GOWN. PT REFUSED BATH & TEETHBUSH (THIS AFTERNOON & THIS AM).
--- NOTE | 2019-05-19 17:17 | NUR ---
ENTERED ROOM WHEN PT OVERHEARD GRUNTING FROM NURSING STATION. PT FOUND PULLING OFF MONITORING EQUIPMENT TO GET TO BSC TO "TAKE A CRAP". PT AGAIN REMINDED TO CALL FOR ASSISTANCE BEFORE GETTING OUT OF BED. PT AGAIN REMINDED OF NEED FOR MONITORING EQUIPMENT; INCLUDING O2. PT STATES HE "DOES WHAT HE WANTS, WHEN HE WANTS TO". BED ALARM WILL BE SET UPON RETURN FROM BSC.
--- NOTE | 2019-05-19 17:23 | NUR ---
PT REEDUCATED ON FALL SAFETY & INSTRUCTED TO CALL FOR ASSISTANCE BEFORE HE GETS UP AGIAN.
--- NOTE | 2019-05-19 17:35 | NUR ---
PT PUT HIMSELF BACK TO BED, WITHOUT CALLING FOR ASSISTANCE. PT RECONNECTED TO MONITORING EQUIPMENT. BED ALARM SET. PT GIVEN DINNER TRAY- SITTING UP IN BED, EATING. PT REFUSING TO WEAR HIS O2 NC WHILE EATING.
--- NOTE | 2019-05-19 18:08 | NUR ---
PT REQUESTED BLINDS CLOSED SO HE "CAN FIND THAT ONE SPOT ON THE BED THATS COMFORTABLE AND GET SOME SLEEP".
--- NOTE | 2019-05-19 18:22 | NUR ---
PT REPEATEDLY REMOVING COBAN TO HELP SECURE IV.
--- NOTE | 2019-05-19 19:35 | NUR ---
PATIENT CALLED FOR ASSISTANCE UP TO BSC. VOIDED SMALL AMOUNT AND HAD SMALL SOFT STOOL. ASSISTED BACK TO BED, DYSPNEIC WITH EXERTION, RESP SHALLOW. USING O2 AT 2 L NC. BREATH SOUND DIMINISHED THROUGHOUT. GENERALIZED EDEMA NOTED. SHIFT ASSESSMENT COMPLETED. NEW IV SITE ESTABLISHED IN , #22 WITH NS AT 100 ML/HR. DISCUSSED PLAN OF CARE. REINFORCEDFALL PRECAUTIONS AND USE OF CALL RANDLE FOR ASSISTANCE OOB. PATIENT VERBALIZES UNDERSTANDING. CALL RANDLE AND URINAL IN PATIENTS REACH.
--- NOTE | 2019-05-19 21:30 | NUR ---
ACCU CHECK 197. SCHEDULED DOSE OF LEVEMIR GIVEN.
--- NOTE | 2019-05-19 22:15 | NUR ---
PATIENT REQUESTS SOMETHING FOR SLEEP. MEDICATED WITH ATIVAN 1 MG PO FOR SLEEP REQUESTED. VOIDS FREQ SMALL AMOUNTS.
--- NOTE | 2019-05-19 22:15 | NUR ---
VSS. PATIENT WATHCING TV. NO COMPLAINTS VOICED.
[2019-05-20] VITALS (7 sets, daily range): BP systolic 84–121; BP diastolic 44–86
--- NOTE | 2019-05-20 00:05 | NUR ---
WATHCING TV. RESP NON-LABORED AT REST. VSS. NO CAHNGES ON MONITOR.
--- NOTE | 2019-05-20 01:40 | NUR ---
PATIENT UP TO BSC VOIDED AND HAD BM OF MOD HARD FORMED STOOL. ASSISTED BACK TO BED. REFUSES TO WER BP CUFF AT THIS TIME.
--- NOTE | 2019-05-20 02:10 | NUR ---
RESTING WITH EYES CLOSED. RESP NON-LABORED AT REST. NO BP RECORDED D/T PATIENT REFUSING TO WEAR BP CUFF.
--- NOTE | 2019-05-20 04:00 | NUR ---
UP TO USE BSC. VERY SOB WITH EXERTION THIS MORNING-PATIENT HAD TAKEN HIS O2 OFF-REMINDED OF IMPORTANCE OF USING OXYGEN. HAD SMALL FORMED BM ON BSC. VSS. IV SITE MAINTAINED IN .
[2019-05-20 05:12] LABS: HEMATOCRIT 25.9 % (39.0-50.0); HEMOGLOBIN 8.2 g/dl (14.0-18.0); MEAN CELL VOLUME 98.1 fL CALC (80.0-100.0); MEAN CORPUSCULAR HGB 31.1 pG CALC (26.0-32.0); MEAN CORPUSCULAR HGB CONC 31.7 g/dL CAL (32.0-36.0); RED BLOOD COUNT 2.64 mill/uL (4.70-6.10); RED CELL DISTRI WIDTH 23.4 % (11.5-15.5)
[2019-05-20 05:31] LABS: BILIRUBIN, TOTAL 1.6 mg/dL (0.0-1.4); CREATININE 3.4 mg/dL (0.7-1.3); POTASSIUM 3.4 mmol/l (3.5-5.1); TOTAL PROTEIN 5.9 g/dL (6.3-8.2)
[2019-05-20 05:35] LABS: IMMATURE GRANULOCYTES 11.7 % (0.0-5.0); NEUT# 1.72 thou/uL (1.82-7.42)
--- NOTE | 2019-05-20 05:45 | NUR ---
SLEPT FOR SHORT INTERVALS. OCC DRY, HACKY TYPE OF COUGH NOTED. IV SITE MAINTAINED IN LH.
--- NOTE | 2019-05-20 06:48 | NUR ---
PT FOUND CLIMBING OUT OF BED FOR BSC W/OUT CALLING FOR STAFF ASSISTANCE. PT UNSTEADY. PT REMINDED TO CALL FOR STAFF BEFORE GETTING UP. PT C/O NO SLEEP LAST NIGHT; MEDICATED.
--- NOTE | 2019-05-20 06:57 | NUR ---
PT REMAINS ON BSC W/FREQUENT MONITORING. 84% ON RA. PT SOB W/EXERTION. PT REFUSING TO WEAR A GOWN. PT REMOVES O2 & ALL MONITORING EQUIPMENT WHEN HE GETS UP.
--- NOTE | 2019-05-20 07:04 | NUR ---
PT CRAWLED BACK IN BED HIMSELF. BED ALARM SET. PT REATTACHED TO MONITORS & O2. PT REEDUCATED ON FALL SAFETY, BED ALARM, & IMPORTANCE OF NC AND MONITORING EQUIPMENT.
--- NOTE | 2019-05-20 07:32 | NUR ---
PT SLEEPING IN BED. NO S/S OF DISTRESS. 98% O2 ON 2L NC. CALLBELL ON ABD. BREAKFAST TRAY PLACED IN ROOM.
--- NOTE | 2019-05-20 08:33 | NUR ---
PT CALLED FOR ASSISTANCE BEFORE GETTING UP TO BSC.
--- NOTE | 2019-05-20 08:39 | NUR ---
DR NASH @BEDSIDE ASSESSING PT & DISCUSSING TEST RESULTS/POC.
--- NOTE | 2019-05-20 08:46 | NUR ---
PT DID NOT CALL FOR ASSISTANCE BEFORE GETTING BACK IN BED. PT IS VERY UNSTEADY ON HIS FEET & REMOVES HIS NC WHILE OUT OF BED. THIS TIME, HE URINATED ALL OVER THE FLOOR, MAKING THE FLOOR SLIPPERY; THUS INCREASING HIS RISK OF FALLING. DEPT DINING ROOM COORDINATOR NOTIFIED OF PTS FALL RISK. PT IS A&Ox3 BUT "DOES WHAT HE WANTS". ALSO AWARE.
--- NOTE | 2019-05-20 09:07 | NUR ---
PTS CALLED FOR UPDATE ON PT. DISCUSSED CONCERNS OVER PTS SAFETY WITH . TRANSFERED CALL TO PORTABLE PHONE BUT PT REMAINS ASLEEP. WILL CALL BACK.
--- NOTE | 2019-05-20 09:25 | NUR ---
CALLED FOR A ROOM ASSIGNEMENT ON MSU
--- NOTE | 2019-05-20 10:00 | NUR ---
PT REMOVED BP CUFF.
--- NOTE | 2019-05-20 10:23 | NUR ---
CALLED TO ROOM SO PT COULD "GO TO THE BATHROOM". FOUND PT SUING THE URINAL. NO OTHER NEEDS AT THIS TIME. WILL CONTINUE TO MONITOR.
--- NOTE | 2019-05-20 10:44 | NUR ---
CASE MANAGEMENT @BEDSIDE.
--- NOTE | 2019-05-20 11:14 | NUR ---
REPORT GIVEN TO DEANGELO ODELL FOR CONTINUATION OF CARE
--- NOTE | 2019-05-20 11:26 | NUR ---
PT ARRIVED TO MED/SURG ROOM 279 IN STABLE CONDITION VIA HOSPITAL BED ACCOMPANIED BY DEANGELO MCCRAY;PT NON-VERBAL TO WRITTER,REFUSING TO ANSWER QUESTIONS OR ALLOW FOR ASSESSMENT BUT DID ASK FOR "APPLE JUICE";RESPIRATIONS APPEAR EVEN AND UNLABORED,SHALLOW ON O2 @ 2L VIA NC.AUDIBLE WHEEZING NOTED;ABDOMEN APPEARS DISTENDED/SOFT ON PALPATION AND ACTIVE IN ALL 4 QUADRANTS;WEAK PEDAL PULSES WITH +2 BLE EDEMA NOTED;ALL SAFETY PRECAUTIONS IN PLACE WITH BED IN THE LOWEST POSITION AND BED ALARM IN PLACE;ATTEMPTED TO RE-ORIENT TO ROOM AND CALL LIGHT SYSTEM BUT PT REFUSED TO RESPOND IN UNDERSTANDING;ENCOURAGED TO CALL FOR ASSISTANCE;CALL LIGHT IN REACH;WILL CONTINUE TO MONITOR
--- NOTE | 2019-05-20 11:34 | NUR ---
PT TRANSFERED TO MSU 279.
--- NOTE | 2019-05-20 11:36 | NUR ---
CALLED TO UPDATE ON PTS TRANSFER TO MSU
--- NOTE | 2019-05-20 15:25 | NUR ---
PT RESTING IN SEMI FOWLERS POSITION, UP AND DOWN FROM BED TO URINAL AND COMMODE;PT REFUSES TO WEAR A GOWN AND CONTINUES TO TAKE OXYGEN ON AND OFF EVEN AFTER FREQUENT REINFORCEMENT.PT DOES BECOME SOB WITHOUT O2;RESPIRATIONS SHALLOW ON O2 @ 2L VIA NC;PT DENIES ANY CURRENT PAIN OR DISCOMFORTS;TELE MONITORING IN PLACE;IV SITE PATENT;ASSESSMENT REMAINS UNCHANGED AT THIS TIME;PT ENCOURAGED TO CALL FOR ASSISTANCE IF NEEDED;FALL PRECAUTIONS IN PLACE WITH BED IN THE LOWEST POSITION AND BED ALARM ON FOR SAFETY;CALL LIGHT IN REACH;WILL CONTINUE TO MONITOR
--- NOTE | 2019-05-20 19:40 | NUR ---
PT ASSESSMENT COMPLETED AT THIS TIME. NO S/O DISTRESS. PT WAS SLEEPING I ENTERED THE ROOM.
--- NOTE | 2019-05-20 20:56 | NUR ---
PT REFUSED MEDICAITONS, STATING HE WANTS TO SLEEP AND HE IS NOT GOING TO SIT UP AND TAKE THEM. NO S/O DISTRESS, PTS EYES CLOSED, BUT RESONDED TO MY VOICE.
--- NOTE | 2019-05-20 22:30 | NUR ---
PT ASSISTED BY AIDES INTO THE SHOWER AND THEN BACK TO BED. NO S/O DISTRESS NOTED. PT PROVIDED ICEWATER REFILL, DENIED SNACK AT THIS ITME.
[2019-05-21] VITALS (7 sets, daily range): BP systolic 86–129; BP diastolic 57–77
--- NOTE | 2019-05-21 05:50 | NUR ---
PT REFUSED MEDICATION AT THIS TIME. I REMINDED PT THAT HE NEEDS TO TAKE THIS PARTICULAR MEDICATION 30MIN PRIOR TO EATING BREAKFAST, REFUSED.
--- NOTE | 2019-05-21 07:15 | NUR ---
CHANGE OF SHIFT REPORT RECEIVED FROM DEANGELO VILLATORO. PT SITTING UP IN BED. PT IS ABLE TO MAKE HIS NEEDS KNOWN. PT HAS LOW PLATELET COUNT AT 19. BLEEDING PRECAUTIONS WILL BE MONITORED. PT ADVISED TO ASK FOR ASSISTANCE WITH AMBULATION OR ADLS.
[2019-05-21 07:45] LABS: HEMATOCRIT 25.7 % (39.0-50.0); HEMOGLOBIN 8.2 g/dl (14.0-18.0); MEAN CELL VOLUME 98.1 fL CALC (80.0-100.0); MEAN CORPUSCULAR HGB 31.3 pG CALC (26.0-32.0); MEAN CORPUSCULAR HGB CONC 31.9 g/dL CAL (32.0-36.0); RED BLOOD COUNT 2.62 mill/uL (4.70-6.10); RED CELL DISTRI WIDTH 23.7 % (11.5-15.5)
[2019-05-21 08:12] LABS: IMMATURE GRANULOCYTES 10.9 % (0.0-5.0); NEUT# 2.27 thou/uL (1.82-7.42)
--- NOTE | 2019-05-21 08:30 | NUR ---
RESULT OFCRITICAL LAB--PLATELET 21 REPORTED TO HUMBERTO BAR. NO NEW ORDERS AT THIS TIME.
[2019-05-21 09:25] LABS: CREATININE 2.9 mg/dL (0.7-1.3); MAGNESIUM 2.1 mg/dL (1.6-2.3); POTASSIUM 3.4 mmol/l (3.5-5.1)
--- NOTE | 2019-05-21 12:00 | NUR ---
COVID-19 SWAB COLLECTED AND SENT TO LAB. PT MOVED TO [facility] ROOM 282. MAILROOM MANAGER WILL CONTINUE TO MONITOR
--- NOTE | 2019-05-21 19:02 | NUR ---
REPORT FROM MARY KATE BRIGHT. PT RESTING IN BED. NO APPARENT DISTRESS NOTED. PT DENIES ANY PAIN OR DISCOMFORT. THIN WHITE FROTHY SPUTUM NOTED WITH COUGH. NO IV SITE PRESENT, OFFGOING NURSE REPORTS PHYSICIAN AWARE AND DOES NOT WANT IV SITE OBTAINED DUE TO PLT COUNT. DEVELOPMENTAL TRAINING COUNSELOR IN PLACE. DISCUSSED POC. PT VERBALIZED UNDERSTANDING. BED ALARM FOR SAFETY. CALL LIGHT WITHIN REACH. WILL CONTINUE TO MONITOR.
--- NOTE | 2019-05-21 19:02 | NUR ---
REPORT FROM MYRNA BRIGHT. PT RESTING IN BED. NO APPARENT DISTRESS NOTED. PT DENIES ANY PAIN OR DISCOMFORT. THIN WHITE FROTHY SPUTUM NOTED WITH COUGH. NO IV SITE PRESENT, OFFGOING NURSE REPORTS PHYSICIAN AWARE AND DOES NOT WANT IV SITE OBTAINED DUE TO PLT COUNT. LETTER SORTING MACHINE OPERATOR IN PLACE. DISCUSSED POC. PT VERBALIZED UNDERSTANDING. BED ALARM FOR SAFETY. CALL LIGHT WITHIN REACH. WILL CONTINUE TO MONITOR.
--- NOTE | 2019-05-21 21:01 | NUR ---
PT REFUSED COREG AND LEVEMIR AT THIS TIME. EDUCATION ON IMPORTANCE OF MEDICATIONS. PT REFUSED EDUCATION WELL. PT TOOK OTHER SCHEDULED MEDS AND PRN ATIVAN AT THIS TIME. SNACK ALSO PROVIDED. WILL CONTINUE TO MONITOR.
--- NOTE | 2019-05-21 23:24 | NUR ---
PT RESTING IN BED WITH EYES CLOSED. NO APPARENT DISTRESS NOTED. PT DENIES ANY PAIN OR DISCOMFORT. O2 VIA NC IN PLACE. CALL LIGHT WITHIN REACH. WILL CONTINUE TO MONITOR.
--- NOTE | 2019-05-22 03:01 | NUR ---
PT RESTING IN BED WITH EYES CLOSED. NO APPARENT DISTRESS NOTED. CALL LIGHT WITHIN REACH. WILL CONTINUE TO MONITOR.
[2019-05-22 04:17] VITALS: BP 109/67
[2019-05-22 06:15] LABS: HEMATOCRIT 23.7 % (39.0-50.0); HEMOGLOBIN 7.6 g/dl (14.0-18.0); MEAN CELL VOLUME 98.8 fL CALC (80.0-100.0); MEAN CORPUSCULAR HGB 31.7 pG CALC (26.0-32.0); MEAN CORPUSCULAR HGB CONC 32.1 g/dL CAL (32.0-36.0); RED BLOOD COUNT 2.4 mill/uL (4.70-6.10); RED CELL DISTRI WIDTH 23.9 % (11.5-15.5)
[2019-05-22 06:42] LABS: ALBUMIN 2.9 g/dL (3.2-5.0); CREATININE 3.1 mg/dL (0.7-1.3); TOTAL PROTEIN 5.7 g/dL (6.3-8.2)
[2019-05-22 06:43] LABS: IMMATURE GRANULOCYTES 15.1 % (0.0-5.0); NEUT# 2.05 thou/uL (1.82-7.42)
[2019-05-22 06:51] LABS: BILIRUBIN, TOTAL 2.9 mg/dL (0.0-1.4)
[2019-05-22 07:45] VITALS: BP 92/67
--- NOTE | 2019-05-22 07:45 | NUR ---
ASSESSMENT IS COMPLETED: HR IS REG, PULSES ARE STRONG X4, ABD IS SOFT WITH ACTIVE BS. BREATH SOUNDS ARE WHEEZING AND DIMINISHED. PT C/O BEING COLD. TELE MONTIOR IN PLACE.
--- NOTE | 2019-05-22 10:07 | NUR ---
INFORMED BY FILIPPO BRIGHT PT IS NEG FOR COVID
--- NOTE | 2019-05-22 10:37 | NUR ---
PT note for 05/22/19 Patient is re- assessed. I discussed the need for him to consider ECF and he is agreeable. His spouse is not in good health and his plan is t return home. Functionally he is as follows: Bed mobility - mod assist with the potential for independence Transfers- mod assist for ed to chair and bed to toilet with the potential for independence Gait- perfromed today with a walker in room x 2 with vitals stable. His o2 sat on RA was 92% after performing DBE Balance in sitting- good, standing fair requiring min/ mod assist of 1 and a FWW He is anxious to return home safely. He realizes he must be as independent as possible and will need rehab to decrease his burden of care, improve his independence and decrease his fall risk. He will need cardiac monitoring as well. He is an excellent ECF candidate and would do well given his recent Am Pac scoring which backs up the above assessment and results at a score of 11- improved from previous day. He s seen for gait training x 2 and assisted with adl. He is much better spirits today and is looking forward to a tranition in care to the next level
[2019-05-22 11:07] VITALS: BP 95/66
--- NOTE | 2019-05-22 12:15 | NUR ---
PT IS RELAXING IN EBD WITH NO DISTRESS NOTED. CONTINUE TO OBSERVE AND MONITOR.
--- NOTE | 2019-05-22 12:28 | NUR ---
MOVED PT TO ROOM 279 VIA BED
--- NOTE | 2019-05-22 14:05 | NUR ---
PT IS SITTING IN BED RELAXED NO DISTRESS NOTED.
--- NOTE | 2019-05-22 14:26 | NUR ---
SPOKE WITH PTS AND SHE INQUIRED WHAT KIND OF PLAN FOR HIM. WAITING TO HEAR RE: REHAB,
--- NOTE | 2019-05-22 15:43 | NUR ---
PT IS RESTING WITH EYES CLOSED NO DISTRESS NOTED.
[2019-05-22 15:53] VITALS: BP 107/73
--- NOTE | 2019-05-22 16:15 | NUR ---
PT IS RELAXING IN BED WITH EYES CLOSED NO DISTRESS NOTED.
[2019-05-22 19:22] VITALS: BP 100/66
--- NOTE | 2019-05-22 22:00 | NUR ---
REPORT RECEIVED FROM Vivien BAIG RN, CARE OF PT ASSUMED @ THIS TIME.
--- NOTE | 2019-05-23 00:13 | NUR ---
PT RESTING IN BED, APPEARS COMFORTABLE AND IN NO APPARENT DISTRESS. CALL RANDLE WITHIN REACH. BED LOCKED IN LOW POSITION W/ BEDRAILS X2. ITEMS WITHIN REACH.
[2019-05-23 00:44] VITALS: BP 140/78
--- NOTE | 2019-05-23 04:34 | NUR ---
PT APPEARS TO BE SLEEPING COMFORTABLY. NO APPARENT DISTRESS. RESPIRATIONS REGULAR AND UNLABORED. CALL RANDLE REMAINS WITHIN REACH, FALL AND SAFETY INTERVENTIONS REMAIN IN PLACE.
[2019-05-23 04:43] VITALS: BP 133/74
[2019-05-23 05:21] LABS: HEMATOCRIT 25.2 % (39.0-50.0); HEMOGLOBIN 7.9 g/dl (14.0-18.0); MEAN CELL VOLUME 98.8 fL CALC (80.0-100.0); MEAN CORPUSCULAR HGB CONC 31.3 g/dL CAL (32.0-36.0); RED BLOOD COUNT 2.55 mill/uL (4.70-6.10); RED CELL DISTRI WIDTH 23.9 % (11.5-15.5)
[2019-05-23 05:40] LABS: BILIRUBIN, TOTAL 1.8 mg/dL (0.0-1.4); CREATININE 3.3 mg/dL (0.7-1.3); POTASSIUM 3.7 mmol/l (3.5-5.1); TOTAL PROTEIN 5.8 g/dL (6.3-8.2)
[2019-05-23 05:57] LABS: IMMATURE GRANULOCYTES 16.4 % (0.0-5.0); NEUT# 1.78 thou/uL (1.82-7.42)
--- NOTE | 2019-05-23 06:11 | NUR ---
PT DEMANDS WATER, SMALL SIPS GIVEN W/ AM MEDS. PT DEMANDS MORE WATER OR "I'LL GO INTO THE BATHROOM AND GET IT FROM THE TOILET". ADVISED PT HE WAS NPO X6 HOURS FOR ABD U/S AND HE HAS ONLY BEEN NPO FOR 3 HOURS. PT STATES "I DONT GIVE A DAMN ABOUT THAT TEST, GIVE ME WATER NOW.
[2019-05-23 08:42] VITALS: BP 98/60
--- NOTE | 2019-05-23 08:42 | NUR ---
PT RESTING IN BED, NO SIGNS OF DISTRESS NOTED, RESP EVEN AND UNLABORED. PT ALERT AND ORIENTED X3, PT QUESTIONING IF U/S WILL BE DONE THIS AM, INFORMED PT THAT CUSTODIAL ENGINEER WILL CALL ONCE SHE ARRIVES. PT VERBALIZED UNDERSTANDING. ASSESSMENT COMPLETED, CALL LIGHT IN REACH,CONTINUE TO MONITOR.
[2019-05-23 11:10] VITALS: BP 102/65
--- NOTE | 2019-05-23 12:36 | NUR ---
PT TAKEN DOWN TO RADIOLOGY FOR ULTRASOUND VIA WHEELCHAIR ACCOMPANIED BY SPECIAL DELIVERY MESSENGER.
--- NOTE | 2019-05-23 13:11 | NUR ---
PT RETURNED FROM FROM RADIOLOGY, CALL LIGHT IN REACH,CONTINUE TO MONITOR.
[2019-05-23 15:40] VITALS: BP 107/68
[2019-05-23 19:00] VITALS: BP 105/68
--- NOTE | 2019-05-23 20:15 | NUR ---
PHYSICAL ASSESMENT COMPLETED. VS TAKEN BY DELINQUENT TAX COLLECTOR @ 1900 ASSESSED. PLAN OF CARE REVIEWED, PT VERBALIZES UNDERSTANDING, DENIES QUESTIONS @ THIS TIME. SEE MAR FOR MED ADMINASTRATION. PT DENIES NEEDS @ THIS TIME, CALL RANDLE WITHIN REACH, AGREES TO CALL PRN. BED LOCKED IN LOW POSITION W/ BEDRAILS UP X2. ITEMS WITHIN REACH.
--- NOTE | 2019-05-23 21:50 | NUR ---
REPORT RECEIVED FROM Anisa ENRIQUEZ LPN, CARE OF PT ASSUMED @ THIS TIME. PT RESTING IN BED, NO APPARENT DISTRESS OR DISCOMFORT. DENIES NEEDS @ THIS TIME. CALL RANDLE WITHIN REACH, AGREES TO CALL PRN.
[2019-05-24] VITALS (7 sets, daily range): BP systolic 100–113; BP diastolic 60–79
--- NOTE | 2019-05-24 01:22 | NUR ---
VS TAKEN BY BOOT MAKER @ 0108 ASSESSED. PT APPEARS TO BE SLEEPING COMFORTABLY, NO APPARENT DISTRESS, RESP REGUALR AND UNLABORED. CALL RANDLE REMAINS WITHIN REACH, BED REMAINS LOCKED IN LOW POSITION W/ BEDRAILS UP X2.ITEMS REMAIN WITHIN REACH.
[2019-05-24 05:09] LABS: HEMATOCRIT 24.2 % (39.0-50.0); HEMOGLOBIN 7.8 g/dl (14.0-18.0); MEAN CELL VOLUME 97.6 fL CALC (80.0-100.0); MEAN CORPUSCULAR HGB 31.5 pG CALC (26.0-32.0); MEAN CORPUSCULAR HGB CONC 32.2 g/dL CAL (32.0-36.0); RED BLOOD COUNT 2.48 mill/uL (4.70-6.10); RED CELL DISTRI WIDTH 23.9 % (11.5-15.5)
[2019-05-24 05:14] LABS: BILIRUBIN, TOTAL 1.7 mg/dL (0.0-1.4); CREATININE 3.2 mg/dL (0.7-1.3); POTASSIUM 3.8 mmol/l (3.5-5.1); TOTAL PROTEIN 5.9 g/dL (6.3-8.2)
--- NOTE | 2019-05-24 06:46 | NUR ---
VS TAKEN BY JAVA WEB ARCHITECT THIS AM ASSESSED. PT APPEARS TO BE SLEEPING COMFORTABLY, NO APPARENT DISTRESS, RESP REGUALR AND UNLABORED. CALL RANDLE REMAINS WITHIN REACH, BED REMAINS LOCKED IN LOW POSITION W/ BEDRAILS UP X2.ITEMS REMAIN WITHIN REACH.
--- NOTE | 2019-05-24 08:14 | NUR ---
PT SITTING IN BED. A&O. SHALLOW BREATHING NOTED. O2 VIA NC IN PLACE @3L. EDEMA NOTED TO BLE. PALE APPEARANCE NOTED. NO OTHER NEEDS AT THIS TIME. DISCUSSED POC. CALL LIGHT IN REACH. CONTINUE TO MONITOR.
--- NOTE | 2019-05-24 11:50 | NUR ---
PT SITTIN IN BED WITH NO O2 IN PLACE, PT REPORTING SOB. PLACED O2 VIA NC BACK IN PLACE AND EXPLAINED TO KEEP IT ON, PER PT "IT IS TOO TIGHT" TOOL REPAIRER OBTAINED AND PLACED. CONTINUE TO MONITOR
--- NOTE | 2019-05-24 20:48 | NUR ---
PT. SITTING UP IN BED WATCHING TV. ASSESSMENT COMPLETED. PT. BUTTOCKS INTACT WITH SLIGHT REDNESS NOTED; BALNCHABLE; AND ENCOURAGED TO REPOSITION OFTEN. BLE ELAVTED TO ASSIST WITH EDEMA. PT. WITHOUT IV SITE PER DAYSHIFT REPORT, IS AWARE AND OKAY WITH THIS. TELEMETRY IN PLACE. O2 INFUSING PER NC. PT. IS SLIGHLY ANXIOUS AND MEDICATED WITH ORDERED PRN ATIVAN; WILL REASSESS.
--- NOTE | 2019-05-24 23:45 | NUR ---
ASSISTANT BASEBALL COACH IN AT BEDSIDE OBTAINING VS. NO DISTRESS NOTED; CALL LIGHT IS IN REACH.
--- NOTE | 2019-05-25 01:00 | NUR ---
PT. REPEATEDLY ON THE CALL LIGHT FOR NUMEROUS THINGS. PT. WANTING TO SIT UP ON THE SIDE OF THE BED AND LAY BACK DOWN. GIVES STAFF COMMANDS WHEN ENTERING THE ROOM. PT. IS ENCOURAGED TO DO MUCH POSSIBLE FOR HIMSELF, NEEDS ENCOURAGEMENT OFTEN. REPEATEDLY TAKING OFF OXYGEN AND RE-EDUCATED EVERYTIME FOR THE NEED OF O2 PT. IS HOME O2 DEPENDANT. BED ALARM IS SET FOR SAFETY. CALL LIGHT IS IN REACH.
--- NOTE | 2019-05-25 02:43 | NUR ---
PT. CONTINUES TO BE ANXIOUS AND MEDICATED WITH ORDERED PRN ATIVAN. RE-EDUCATED ON FLUIDS RESTRICTION. O2 INFUSING PER NC PER ORDER.
[2019-05-25 03:23] VITALS: BP 108/62
--- NOTE | 2019-05-25 04:38 | NUR ---
RESTING IN BED WITH NO DISTRESS NOTED; DENIES NEEDS. SCHED SYNTHROID GIVEN WITH WATER. BED ALARM SET FOR SAFETY PREC.
[2019-05-25 04:43] LABS: HEMATOCRIT 23.4 % (39.0-50.0); HEMOGLOBIN 7.6 g/dl (14.0-18.0); MEAN CELL VOLUME 98.3 fL CALC (80.0-100.0); MEAN CORPUSCULAR HGB 31.9 pG CALC (26.0-32.0); MEAN CORPUSCULAR HGB CONC 32.5 g/dL CAL (32.0-36.0); RED BLOOD COUNT 2.38 mill/uL (4.70-6.10); RED CELL DISTRI WIDTH 23.9 % (11.5-15.5)
[2019-05-25 04:50] LABS: ALBUMIN 2.9 g/dL (3.2-5.0); BILIRUBIN, TOTAL 1.5 mg/dL (0.0-1.4); POTASSIUM 3.5 mmol/l (3.5-5.1); TOTAL PROTEIN 5.8 g/dL (6.3-8.2)
[2019-05-25 05:24] LABS: PLATELET COUNT 20 thou/uL (130-400)
[2019-05-25 05:25] LABS: IMMATURE GRANULOCYTES 19.9 % (0.0-5.0); MANUAL DIFFERENTIAL YES
[2019-05-25 05:35] LABS: BAND 7 % (0-8)
[2019-05-25 05:36] LABS: HYPOCHROMIA MODERATE; POIKILOCYTOSIS FEW; POLYCHROMASIA FEW
[2019-05-25 05:37] LABS: ANISOCYTOSIS FEW; MICROCYTOSIS FEW; SCHISTOCYTES FEW; SPHEROCYTE FEW; TARGET CELLS FEW; TEAR DROP CELLS FEW
[2019-05-25 05:38] LABS: OVALOCYTES FEW; PLATELET ESTIMATE MARKED DECREASE
--- NOTE | 2019-05-25 05:45 | NUR ---
PT. INTENTIONALLY REMOVING O2 AND TELEMETRY WELL SETTING OFF BED ALARM THROUGHOUT SHIFT. PT. IS RE-EDUCATED AND RE-ORIENTED TO COMPLIANCE OF TREATMENTS.
--- NOTE | 2019-05-25 08:00 | NUR ---
CHANGE OF SHIFT REPORT RECEIVED FROM SN BONNIE. PT RESTING IN SUPINE POSITION WITH HOB AT 45 DEGREES. CALL LIGHT WITHIN EASY REACH, BED IN LOWEST POSITION, BED ALARM ON.
[2019-05-25 08:05] VITALS: BP 107/66
[2019-05-25 10:50] VITALS: BP 103/69
--- NOTE | 2019-05-25 12:00 | NUR ---
NEW IV IN PLACE ON RIGHT FOREARM. PT ABLE TO MAKE SOME NEEDS KNOWN. REDIRECTION PROVIDED WITH GOOD EFFECT. PT TAKING OFF TEL. JEFFREY PAUL NOTIFIED. AHMET NOTIFIED
--- NOTE | 2019-05-25 14:00 | NUR ---
PT TAKEN DOWN TO RADIOLOGY FOR CT SCAN AND BIOPSY.
--- NOTE | 2019-05-25 15:00 | NUR ---
PT BACK IN ROOM FROM RADIOLOGY. ELECTRONIC DATA PROCESSING AUDITOR WILL CONTINUE TO MONITOR
[2019-05-25 15:37] VITALS: BP 114/75
--- NOTE | 2019-05-25 16:00 | NUR ---
PT RESTING COMFORTABLY NO S/S OF PAIN OR DISCOMFORT. WOOD MACHINE CARVER WILL CONTINUE TO MONITOR
[2019-05-25 18:36] VITALS: BP 100/66
--- NOTE | 2019-05-25 19:00 | NUR ---
RECEIEVED REPORT FROM DAY NURSE PATIENT RESTING IN BED, EYES CLOSED, REMAINS ON O2 @ 3LPM VIA NC WITH SHALLOW, UNLABORED BREATHING,CALL LIGHT AT REACH.
--- NOTE | 2019-05-25 20:00 | NUR ---
PATIENT ALERT ORIENETED ABLE TO MAKE NEEDS KNONW, WITH SALINE LOCK ON RFA, PATENT FLUSHES WELL, REMAINS ON TELE,AND ON CONTINUOUS O2 @ 3LPM VIA NC WITH SHALLOW, UNLABORED RESPIRATION, CALL LIGHT AT REACH.
[2019-05-25 23:44] VITALS: BP 113/67
--- NOTE | 2019-05-26 00:02 | NUR ---
APPEARS TO BE SLEEPING WITH EYES CLOSED, NO DISCOMFORTS NOTED AT THIS TIME CALL LIGHT AT REACH.
[2019-05-26 04:05] VITALS: BP 107/67
--- NOTE | 2019-05-26 05:11 | NUR ---
PATIENT RESTING IN BED WITH REMAINS ON O2 @ 3LPM VIA NC, SHALLOW, UN;LABORED BREATHING CALL LIGHT AT REACH.
--- NOTE | 2019-05-26 07:20 | NUR ---
CHANGE OF SHIFT REPORT RECEIVED FROM DEANGELO UMANA. PT IN BED RESTING COMFORTABLY. PT DENIES PAIN. O2 SATURATION RANGING BETWEEN 98 TO 100% ON 2LPM VIA NS. PT NOTED TO HAVE EXPIRATORY WHEEZING ON BILATERAL UPPER LOBES. PT ECOURAGED TO PRACTISE ACTIVE COUGHING. PT ENCOURAGED TO USE INCENTIVE SPIROMETER. REINFORCEMENT NEEDED ON USE OF INCENTIVE SPIROMETER. POLICY SPECIALIST WILL CONTINUE TO MONITOR.
[2019-05-26 07:29] LABS: HEMATOCRIT 24.2 % (39.0-50.0); HEMOGLOBIN 7.9 g/dl (14.0-18.0); MEAN CELL VOLUME 98.4 fL CALC (80.0-100.0); MEAN CORPUSCULAR HGB 32.1 pG CALC (26.0-32.0); MEAN CORPUSCULAR HGB CONC 32.6 g/dL CAL (32.0-36.0); RED BLOOD COUNT 2.46 mill/uL (4.70-6.10); RED CELL DISTRI WIDTH 24.7 % (11.5-15.5)
[2019-05-26 07:48] LABS: CREATININE 2.9 mg/dL (0.7-1.3); POTASSIUM 3.5 mmol/l (3.5-5.1)
[2019-05-26 08:00] VITALS: BP 103/70
--- NOTE | 2019-05-26 08:22 | NUR ---
INFORMED NURSE TAKING CARE OF PT RE: PLT COUNT OF 17 [address] ON THE UNIT NOTIFIED.
[2019-05-26 11:09] VITALS: BP 113/80
--- NOTE | 2019-05-26 11:48 | NUR ---
PT AMBULATED FROM BED TO BATHROOM USING WALKER. PT HAD A MEDIUM FORMED BOWEL MOVEMENT. PT ABLE TO AMBULATE BACK TO BED. PT'S EDEMA IN LOWE EXTREMITIES RESOLVING. NO WHEEZING NOTED AT THIS TIME. NEW IV INSERTED ON RFA #24. OLD IV REMOVED FOR C/O PAIN AND DISCOMFORT. IV SITE IS INTACT. SALESPERSON SURGICAL APPLIANCES WILL CONTINUE TO MONITOR
--- NOTE | 2019-05-26 12:57 | NUR ---
05/25/19 PT note Patient has less dyspnea at rest. He is able to get OOB to bedside chair with o2 and Mod assist of 1. His Am Pac score is uncahnged and he would do well to go to [facility] for continued functional training and cardiac monitoring His transitional movements are limited by dyspnea and he is limited to in room ambulation with O2 and FWW with mod assist due to dyspnea
[2019-05-26 15:17] VITALS: BP 113/71
[2019-05-26 19:10] VITALS: BP 95/61
--- NOTE | 2019-05-26 20:00 | NUR ---
PATIENT RESTING IN BED AT THIS TIME WITH O2 VIA NASAL CANNULA IN PLACE. EYES ARE CLOSED AND APPEARS SLEEPING. COLOR IS PALE. SKIN IS WARM AND DRY. TELE MONITOR IN PLACE. CALL LIGHT IN REACH. WILL CONT TO MONITOR.
--- NOTE | 2019-05-26 21:30 | NUR ---
PATIENT IS AWAKE AND WATCHING TV AT THIS TIME. PATIENT DID NOT EAT MUCH OF HIS DINNER AND STATES THAT HE DOESN'T WAS SNACK AT THIS TIME. VIVIANA HELD. COREG HELD-BP-95/61, HR-90. SAFETY PRECAUTIONS REINFORCED. CALL LIGHT IN REACH. WILL CONT TO MONITOR.
[2019-05-27 00:05] VITALS: BP 99/65
--- NOTE | 2019-05-27 01:10 | NUR ---
PATIENT RESTING IN BED AT THIS TIME-INCONT OF MODERATE AMT OF URINE IN BED BUT WAS ABLE TO COLLECT URINE SPEC FOR K+,NA+AND OSMOLARITY. PATIENT CONT TO TAKE HIS O2 ON AND OFF-ENCOURAGED TO LEAVE IT ON. PATIENT WITH PRODUCTIVE COUGH-CLEAR WITH STREAK OF BRIGHT RED BLOOD NOTED. PATIENT IS NOW EATING HS SNACK. PATIENT PROVIDED WITH PERSONAL HYGEINE AND LINENS CHANGED.TELE MONITOR IN PLACE. SAFETY PRECAUTIONS REINFORCED. CALL LIGHT IN REACH. WILL CONT TO MONITOR.
--- NOTE | 2019-05-27 02:49 | NUR ---
PATIENT RESTING IN BED AT THIS TIME-APPEARS SLEEPING WITH EYES CLOSED/. O2 VIA NASAL CANNULA IN PLACE. RESP ARE EVEN AND UNLABORED AT THIS TIME. TELE MONITOR IN PLACE. CALL LIGHT IN REACH. WILL CONT TO MONITOR.
[2019-05-27 04:49] VITALS: BP 107/66
--- NOTE | 2019-05-27 07:00 | NUR ---
SHIFT CHANGE REPORT, PT SITTING UP IN BED WITH EYES CLOSED, RESPONDS TO VERBAL STIMULI, DENIES PAIN AT THIS TIME, O2 CANULA RESTING ON SHOULDER, TELE MONITOR IN PLACE, CALL RANDLE IN REACH.
[2019-05-27 07:39] VITALS: BP 105/75
[2019-05-27 08:10] LABS: HEMATOCRIT 24.1 % (39.0-50.0); HEMOGLOBIN 7.9 g/dl (14.0-18.0); MEAN CORPUSCULAR HGB 32.1 pG CALC (26.0-32.0); MEAN CORPUSCULAR HGB CONC 32.8 g/dL CAL (32.0-36.0); RED BLOOD COUNT 2.46 mill/uL (4.70-6.10)
--- NOTE | 2019-05-27 09:33 | NUR ---
PT note: 05/26/19 Patient wass attempted x 2. In Am he was soundly asleep and difficult to arouse . In PM, despite efforts from nursing and myself, he adamantly refused
--- NOTE | 2019-05-27 11:25 | NUR ---
ASSISTED TO CHAIR AT THIS TIME, SET UP FOR MEAL, CALL RANDLE IN REACH.
[2019-05-27 12:11] VITALS: BP 98/75
[2019-05-27 16:00] VITALS: BP 99/65
--- NOTE | 2019-05-27 16:00 | NUR ---
ASSISTED BACK TO BED, SETTLED, ALL NEEDS ADDRESSED, CALL RANDLE IN REACH.
--- NOTE | 2019-05-27 19:15 | NUR ---
REPORT RECEIVED FROM DEANGELO LOPEZ. PT RESTING IN BED. NO S/S OF DISTRESS AT THIS TIME. SAFETY PRECAUTIONS IN PLACE. WILL CONTINUE TO MONITOR.
[2019-05-27 19:30] VITALS: BP 95/67
--- NOTE | 2019-05-28 00:16 | NUR ---
PT RESTING IN BED. NO S/S OF DISTRESS AT THIS TIME. SAFETY PRECAUTIONS IN PLACE. WILL CONTINEU TO MONITOR.
[2019-05-28 00:30] VITALS: BP 125/90
--- NOTE | 2019-05-28 04:22 | NUR ---
PT RESTING IN BED. RESPIRATIONS EVEN AND UNLABORED ON O2 @ 2L VIA NC. NO S/S OF DISTRESS AT THIS TIME. SAFETY PRECAUTIONS IN PLACE. WILL CONTINUE TO MONITOR.
[2019-05-28 05:08] VITALS: BP 104/66
[2019-05-28 07:46] VITALS: BP 92/63
--- NOTE | 2019-05-28 08:05 | NUR ---
05/27/19 PT note Patient adamantly refused AM and PM treatment. "No no no". He is dyspneic at rest and moves very slowly. Nursing mentioned he did walk to the in the early AM limited by dyspnea
[2019-05-28 08:33] LABS: HEMATOCRIT 23.6 % (39.0-50.0); HEMOGLOBIN 7.7 g/dl (14.0-18.0); MEAN CELL VOLUME 98.7 fL CALC (80.0-100.0); MEAN CORPUSCULAR HGB 32.2 pG CALC (26.0-32.0); MEAN CORPUSCULAR HGB CONC 32.6 g/dL CAL (32.0-36.0); RED BLOOD COUNT 2.39 mill/uL (4.70-6.10); RED CELL DISTRI WIDTH 25.2 % (11.5-15.5)
[2019-05-28 08:54] LABS: BILIRUBIN, TOTAL 1.6 mg/dL (0.0-1.4); CREATININE 2.9 mg/dL (0.7-1.3); POTASSIUM 3.3 mmol/l (3.5-5.1); TOTAL PROTEIN 5.9 g/dL (6.3-8.2)
--- NOTE | 2019-05-28 09:00 | NUR ---
PT RESTING IN BED WITH EYES CLOSED, EASILY ROUSED. NO COMPLAINTS R/T BREATHING, NO CHEST PAIN. CRACKLES TO LEFT LUNG HENSON, PT WITH NC THAT HE OFTEN REMOVES. NO ACUTE DISTRESS.
[2019-05-28 10:52] VITALS: BP 111/56
[2019-05-28 14:39] VITALS: BP 94/66
--- NOTE | 2019-05-28 15:18 | NUR ---
PT SEEN SLEEPING MUCH OF THIS DAY, ALTHOUGH HE IS EASILY WOKEN. POSSIBLE TRANSFER TO [facility] PENDING, CASE MGMT WORKING ON SAME.
--- NOTE | 2019-05-28 19:16 | NUR ---
PT AWARE OF PENDING TRANSFER. PT REMAINS IN THE BED WITH EYES CLOSED, RESPONDS TO VERBAL STIMULI. NO DISTRESS.
--- NOTE | 2019-05-28 19:52 | NUR ---
PT HAS LEFT FOR [facility]IA [facility], CONDITION STABLE. REPORT WAS CALLED TO
== END 2019-05-28 19:52 | disposition short-term general hospital (02) | DRG 987 ==
PROVIDERS: Family Medicine; Internal Medicine; Nurse Practitioner Family; ADMIT Internal Medicine
PROC: 07DR3ZX Extraction of Iliac Bone Marrow, Percutaneous Approach, Diagnostic (ICD-10-PCS; principal; 2019-05-25)
PROC: 0QB33ZX Excision of Left Pelvic Bone, Percutaneous Approach, Diagnostic (ICD-10-PCS; 2019-05-25)
DX: I13.0 Hypertensive heart and chronic kidney disease with heart failure and stage 1 through stage 4 chronic kidney disease, or unspecified chronic kidney disease (principal); I50.23 Acute on chronic systolic (congestive) heart failure; N17.9 Acute kidney failure, unspecified; I48.20 Chronic atrial fibrillation, unspecified; E87.1 Hypo-osmolality and hyponatremia; N18.4 Chronic kidney disease, stage 4 (severe); D46.9 Myelodysplastic syndrome, unspecified; E11.22 Type 2 diabetes mellitus with diabetic chronic kidney disease; J43.9 Emphysema, unspecified; I25.10 Atherosclerotic heart disease of native coronary artery without angina pectoris; I42.9 Cardiomyopathy, unspecified; E03.9 Hypothyroidism, unspecified; D63.1 Anemia in chronic kidney disease; M10.9 Gout, unspecified; E87.6 Hypokalemia; L98.9 Disorder of the skin and subcutaneous tissue, unspecified; K76.0 Fatty (change of) liver, not elsewhere classified; E78.5 Hyperlipidemia, unspecified; N40.0 Benign prostatic hyperplasia without lower urinary tract symptoms; I25.2 Old myocardial infarction; F17.200 Nicotine dependence, unspecified, uncomplicated; Z79.4 Long term (current) use of insulin; Z95.1 Presence of aortocoronary bypass graft; Z95.5 Presence of coronary angioplasty implant and graft; Z95.0 Presence of cardiac pacemaker
CPT/HCPCS: G0378; J1756; J3420